=== PATIENT | male | born 1945 | race Caucasian/White ===

== ENCOUNTER 2021-12-07 09:42 | Outpatient (CLI) | payer MEDICARE, OTHER, SELFPAY ==
--- NOTE | ~2021-12-07 | US_ITS ---
EXAMINATION: US aorta [facility] DATE: 12/07/2021 10:39 CDT INDICATION: Encounter for screening for aneurysm. High cholesterol. Hypertension. TECHNIQUE: Grayscale, color Doppler, and pulsed Doppler images of the aorta and common iliac arteries were obtained. COMPARISON: None. FINDINGS: The proximal aorta measures 2 cm greatest sagittal dimension. The mid aorta measures 1.9 cm greatest sagittal dimension. The distal aorta measures 1.5 cm greatest sagittal dimension. The right common in ternal iliac artery measures 0.9 cm. The left common iliac artery measures 0.9 cm. IMPRESSION: 1. Normal caliber aorta without aneurysm. Reviewed, dictated and finalized at location A.
== END 2021-12-07 09:43 | disposition home or self-care (01) ==
PROVIDERS: PCP Family Medicine; Visit Provider Family Medicine
DX: Z13.6 Encounter for screening for cardiovascular disorders (principal)
CPT/HCPCS: 76706

== ENCOUNTER 2022-01-16 00:41 | Day surgery (SDC) | payer MEDICARE, OTHER, SELFPAY ==
[2021-12-25 14:40] VITALS: BMI 25.9
--- NOTE | 2022-01-15 11:15 | PM.HPGS ---
History of Present Illness History of Present Illness Consent: Risks, benefits, and alternatives have been discussed and questions answered. Patient agrees to proceed with procedure. Chief complaint: cancer Narrative: Alonzo Moreno is a 76 year old male referred for colon cancer screening. His mother had colon cancer. Review of Systems Review of Systems: All systems reviewed & are unremarkable except as noted in HPI and below PMFSH Past Medical History Medical History Arthritis Essential (primary) hypertension HLD (hyperlipidemia) Surgical History Surgical History History of cataract History of knee replacement procedure of left knee Status post left hip replacement Status post lumbar spinal fusion Social History Social History Smoking packs per day: 2 Smoking cigarettes per day: 40.0 Years smoked: 10 Smoking pack-years: 20.00 Smoking status: Former smoker Tobacco type: cigarettes and cigars Second hand tobacco smoke exposure: No Smoking end date: 07/07/16 Alcohol intake: never Substance use: never Substance use type: does not use Living arrangements: with family Gender identity (if verbalized by the patient): Male Spiritual care concerns: No Meds Home Medications and Allergies Home Medications Medication Instructions Recorded Confirmed Type diclofenac sodium 1 % topical gel 2 gm topical QID #100 grams 04/03/20 12/25/21 Rx cholecalciferol (vitamin D3) 25 25 mcg PO DAILY 11/15/20 12/25/21 History mcg (1,000 unit) capsule finasteride 5 mg tablet 5 mg PO DAILY #90 tabs 07/16/21 12/25/21 Rx olmesartan 40 See Rx Instructions .Route 08/03/21 12/25/21 Rx mg-hydrochlorothiazide 12.5 mg .COMPLEX #90 tabs tablet metaxalone 800 mg tablet 800 mg PO HS 11/13/21 12/25/21 History sodium sul 1.479 gram-potas ch See Rx Instructions PO PER PKG DIR 11/20/21 12/25/21 Rx 0.188 gram-magnes sul 0.225 gram #24 tabs tablet (Sutab) celecoxib 200 mg capsule (Celebrex) 200 mg PO BID #180 caps 11/21/21 12/25/21 Rx rosuvastatin 5 mg tablet 5 mg PO DAILY #90 tabs 11/22/21 12/25/21 Rx amlodipine 5 mg tablet 5 mg PO DAILY #90 tabs 12/11/21 12/25/21 Rx Allergies Allergy/AdvReac Type Severity Reaction Status Date / Time ALLISON Inhibitors Allergy Unknown Unknown Verified 01/16/22 06:43 Exam Resp: Auscultation: clear to auscultation bilaterally Cardio: Rate: regular rate Rhythm: regular rhythm GI: GI Palp: Yes Soft to palpation and No Tenderness to palpation present (GI) Assessment and Plan Assessment and plan (1) Colon cancer screening: Code(s): Z12.11 - Encounter for screening for malignant neoplasm of colon Status: Acute Assessment and Plan: Colonoscopy with possible biopsy or polypectomy or cautery or injection of substances.
--- NOTE | 2022-01-15 12:32 | P.PNAN_ITS ---
Anes - Initial Pre Proc Eval Procedure: Operation Date: 01/16/22 08:00 Proposed Procedures p Screening Colonoscopy - Pierce Alaniz MD Date/Time: 01/15/22 12:32 Surgeon: Pierce Alaniz MD Pre Op Diagnosis: cancer Patient Data Age: 76 Gender: M Height: 1.78 m Weight: 82 kg Allergies Allergy/AdvReac Type Severity Reaction Status Date / Time ALLISON Inhibitors Allergy Unknown Unknown Verified 01/16/22 06:43 Home Medications Medication Instructions Recorded Confirmed Type diclofenac sodium 1 % topical gel 2 gm topical QID #100 grams 04/03/20 12/25/21 Rx cholecalciferol (vitamin D3) 25 25 mcg PO DAILY 11/15/20 12/25/21 History mcg (1,000 unit) capsule finasteride 5 mg tablet 5 mg PO DAILY #90 tabs 07/16/21 12/25/21 Rx olmesartan 40 See Rx Instructions .Route 08/03/21 12/25/21 Rx mg-hydrochlorothiazide 12.5 mg .COMPLEX #90 tabs tablet metaxalone 800 mg tablet 800 mg PO HS 11/13/21 12/25/21 History sodium sul 1.479 gram-potas ch See Rx Instructions PO PER PKG DIR 11/20/21 12/25/21 Rx 0.188 gram-magnes sul 0.225 gram #24 tabs tablet (Sutab) celecoxib 200 mg capsule (Celebrex) 200 mg PO BID #180 caps 11/21/21 12/25/21 Rx rosuvastatin 5 mg tablet 5 mg PO DAILY #90 tabs 11/22/21 12/25/21 Rx amlodipine 5 mg tablet 5 mg PO DAILY #90 tabs 12/11/21 12/25/21 Rx Patient hx anesthesia problems: none Family hx anesthesia problems: none Results Review: All pre-operative results and documents have been reviewed as part of the pre- operative evaluation. [facility]LY [facility] Past Medical History Medical History Arthritis Essential (primary) hypertension HLD (hyperlipidemia) Surgical History Surgical History History of cataract History of knee replacement procedure of left knee Status post left hip replacement Status post lumbar spinal fusion Social History Social History Smoking packs per day: 2 Smoking cigarettes per day: 40.0 Years smoked: 10 Smoking pack-years: 20.00 Smoking status: Former smoker Tobacco type: cigarettes and cigars Second hand tobacco smoke exposure: No Smoking end date: 07/07/16 Alcohol intake: never Substance use: never Substance use type: does not use Living arrangements: with family Gender identity (if verbalized by the patient): Male Spiritual care concerns: No Anes - Eval Final PreProcedure Day of Procedure 01/15/22 12:32 Patient weight: normal Heart: regular rate and rhythm Lungs: clear to auscultation and normal air movement Airway: Mallampati scale class II Neurological: alert and oriented Last oral intake: >/= 8 hours ASA classification: II Emergent: no Anesthetic plan: proceed Anesthesia type and monitoring: general GIVS Results Review: All pre-operative results and documents have been reviewed as part of the pre- operative evaluation. Informed Consent: The patient's anesthetic plan and its attendant risks and benefits were discussed with the patient/family/POA. Questions were solicited and answers pro vided to the satisfaction of the patient/family/POA.
[2022-01-16 06:44] VITALS: BP 140/97; PULSE 68; RESP 18; TEMP 36.1; O2SAT 97; BMI 25.2
[2022-01-16] MEDS: LACTATED RINGERS 1,000 ML 150 ML IV CONT (06:51)
[2022-01-16 08:01] VITALS: BP 99/64; PULSE 62; RESP 18; O2SAT 100
[2022-01-16 08:11] VITALS: BP 129/72; PULSE 52; RESP 20; O2SAT 100
[2022-01-16 08:21] VITALS: BP 148/79; PULSE 65; RESP 24; O2SAT 100
== END 2022-01-16 08:32 | disposition home or self-care (01) ==
PROVIDERS: PCP Nurse Practitioner Family; Visit Provider Internal Medicine Gastroenterology
PROC: 0DJD8ZZ Inspection of Lower Intestinal Tract, Via Natural or Artificial Opening Endoscopic (ICD-10-PCS; CPT 45378; principal; 2022-01-16 08:00)
DX: Z12.11 Encounter for screening for malignant neoplasm of colon (principal); K64.8 Other hemorrhoids; Z80.0 Family history of malignant neoplasm of digestive organs; I10 Essential (primary) hypertension; E78.5 Hyperlipidemia, unspecified; M19.90 Unspecified osteoarthritis, unspecified site; Z87.891 Personal history of nicotine dependence
CPT/HCPCS: G0105; J2704; J7120

== ENCOUNTER → 2022-01-17 13:42 | Outpatient (CLI) | payer MEDICARE, OTHER, SELFPAY ==
--- NOTE | ~2022-01-17 | MR_ITS ---
EXAMINATION: MR thoracic spine wo con DATE: 01/17/2022 14:57 INDICATION: Thoracic back pain. TECHNIQUE: Magnetic resonance imaging (MRI) of the thoracic spine was performed without intravenous c ontrast. Sagittal localizer T1-weighted FSE of the cervical spine was obtained. Thoracic spine sequen estefania included sagittal T2-weighted FSE, sagittal T1-weighted FSE, sagittal T2-weighted FS FSE, and axi al T2-weighted FSE. COMPARISON: Lumbar spine MRI 04/08/2019 FINDINGS: There is 5 degrees levocurvature of upper thoracic spine. There are hemangiomas in T5 and T 9 vertebral bodies. Vertebral body heights are normal. There is mildly decreased disc height at T5-T6 . At T5-T6, there is a central extrusion with mild central canal stenosis. There is multilevel mild f acet joint osteoarthritis. On the right, there is mild neural foraminal stenosis at T1-T2. The spinal cord signal intensity is normal. The conus medullaris is at L1. There are old healed right rib fract ures. IMPRESSION: 1. Mild thoracic spondylosis. Reviewed, dictated and finalized at location A.
== END ==
PROVIDERS: PCP Family Medicine; Visit Provider Nurse Practitioner Family
DX: M47.894 Other spondylosis, thoracic region (principal)
CPT/HCPCS: 72146

== ENCOUNTER 2022-03-05 16:25 | Outpatient (CLI) | payer MEDICARE, OTHER, SELFPAY ==
--- NOTE | 2022-03-05 | ECG_ITS ---
Measurements Intervals Weldon Rate: 62 P: 58 RI: 164 QRS: 14 QRSD: 104 T: 29 QT: 406 QTc: 413 Interpretive Statements SINUS RHYTHM WITH SINUS ARRHYTHMIA AND OCCASIONAL VENTRICULAR PREMATURE COMPLEXES POSSIBLE LEFT ATRIAL ENLARGEMENT [-0.1mV P WAVE IN V1/V2] NO PREVIOUS ECG AVAILABLE FOR COMPARISON Electronically Signed On 03-05-2022 20:32:44 CDT by Brandi Rider M.D.
[2022-03-05 17:19] LABS: Basophils Absolute Auto 0.1 K/mm3 (0.0-0.1); Basophils Percent Auto 0.9 % (0.2-1.2); Eosinophils Absolute Auto 0.2 K/mm3 (0-0.3); Eosinophils Percent Auto 2.5 % (0-4.4); Hematocrit 40.8 % (42.0-52.0); Hemoglobin 13.1 g/dL (14.0-18.0); Immature Granulocyte Absolute 0.04 K/mm3 (0.00-0.031); Immature Granulocyte Percent A 0.6 % (0-0.5); Lymphocytes Absolute Auto 1.54 K/mm3 (0.9-3.2); Lymphocytes Percent Auto 23.6 % (18.3-44.2); Mean Corpuscular HGB Conc 32.1 g/dl (32-36); Mean Corpuscular Hemoglobin 28.9 pg (26-34); Mean Corpuscular Volume 89.9 fl (80-100); Mean Platelet Volume 10.6 fl (7.4-10.4); Monocytes Absolute Auto 0.6 K/mm3 (0.1-0.6); Monocytes Percent Auto 9.5 % (2.6-8.5); Neutrophils Absolute Auto 4.1 K/mm3 (1.3-6.7); Neutrophils Percent Auto 62.9 % (45.5-73.1); Platelet Count Result 207 k/mm3 (150-375); Red Blood Count 4.54 M/mm3 (4.6-6.20); Red Cell Distribution Width 13.8 % (11.5-14.5); White Blood Count 6.5 K/mm3 (4.5-10.0)
[2022-03-05 17:34] LABS: Add Urine Microscopic? NO; Appearance Urine Clear (Clear); Bilirubin Urine Negative (Negative); Blood Urine Negative (Negative); Color Urine Yellow (Yellow); Glucose Urine UA Negative (Negative); Ketones Urine Negative (Negative); Leukocyte Esterase Ur Negative LEU/UL (Negative); Nitrate Urine Negative (Negative); Protein Urine Negative (Negative); Specific Grav Ur >= 1.030 (1.001-1.035); Urobilinogen Urine 0.2 mg/dL (<2.0); pH Urine 5.5 (5.0-9.0)
[2022-03-05 17:34] LABS: Anion Gap 10 mmol/L (8-16); Blood Urea Nitrogen 32 mg/dL (9-20); CRP < 0.5 mg/dL (<1.0); Calcium 9.1 mg/dL (8.4-10.2); Carbon Dioxide 25 mmol/L (22-30); Chloride 104 mmol/L (98-107); Estimated Glomerular Filt Rate 59; Glucose 95 mg/dL (65-110); Potassium 3.9 mmol/L (3.4-5.0); Sodium 139 mmol/L (137-145)
[2022-03-05 18:01] LABS: Erythrocyte Sedimentation Rate 12 mm/hr (0-20)
== END 2022-03-05 16:26 | disposition home or self-care (01) ==
LOC: ANHLAB 16:28
PROVIDERS: PCP Family Medicine; Visit Provider Pain Medicine Pain Medicine
DX: Z01.810 Encounter for preprocedural cardiovascular examination (principal)
CPT/HCPCS: 36415; 80048; 81003; 85025; 85652; 86140; 93005

== ENCOUNTER 2022-03-18 16:54 | Emergency (ER) | payer MEDICARE, OTHER, SELFPAY ==
[2022-03-18 17:04] VITALS: BP 124/72; PULSE 72; RESP 18; TEMP 36.4; O2SAT 100
[2022-03-18 17:29] LABS: Basophils Absolute Auto 0.1 K/mm3 (0.0-0.1); Basophils Percent Auto 0.7 % (0.2-1.2); Eosinophils Absolute Auto 0.1 K/mm3 (0-0.3); Eosinophils Percent Auto 1.9 % (0-4.4); Hematocrit 40.5 % (42.0-52.0); Hemoglobin 13.1 g/dL (14.0-18.0); Immature Granulocyte Absolute 0.03 K/mm3 (0.00-0.031); Immature Granulocyte Percent A 0.4 % (0-0.5); Lymphocytes Absolute Auto 1.37 K/mm3 (0.9-3.2); Lymphocytes Percent Auto 19.8 % (18.3-44.2); Mean Corpuscular HGB Conc 32.3 g/dl (32-36); Mean Corpuscular Hemoglobin 28.7 pg (26-34); Mean Corpuscular Volume 88.6 fl (80-100); Mean Platelet Volume 10.9 fl (7.4-10.4); Monocytes Absolute Auto 0.8 K/mm3 (0.1-0.6); Neutrophils Absolute Auto 4.6 K/mm3 (1.3-6.7); Neutrophils Percent Auto 66.2 % (45.5-73.1); Platelet Count Result 217 k/mm3 (150-375); Red Blood Count 4.57 M/mm3 (4.6-6.20); Red Cell Distribution Width 13.6 % (11.5-14.5); White Blood Count 6.9 K/mm3 (4.5-10.0)
[2022-03-18 17:36] LABS: Alanine Aminotransferase 17 U/L (6-50); Albumin Level 4.2 g/dL (3.5-5.1); Alkaline Phosphatase 56 U/L (38-126); Anion Gap 9 mmol/L (8-16); Aspartate Amino Transferase 17 U/L (17-59); Bilirubin,Total 0.4 mg/dL (0.2-1.3); Blood Urea Nitrogen 36 mg/dL (9-20); Calcium 9.1 mg/dL (8.4-10.2); Carbon Dioxide 25 mmol/L (22-30); Chloride 104 mmol/L (98-107); Estimated CRCL calculation 45 ml/min; Estimated Glomerular Filt Rate 54; Glucose 109 mg/dL (65-110); Potassium 4.2 mmol/L (3.4-5.0); Sodium 138 mmol/L (137-145)
--- NOTE | 2022-03-18 21:00 | PC.NURSE ---
called in triage with no answer@[id number]
--- NOTE | 2022-03-18 21:01 | PC.NURSE ---
Called in rubi to go back to room @ [phone] with no answer
== END 2022-03-18 20:57 | disposition left against medical advice (07) ==
PROVIDERS: Emergency Medicine; PCP Family Medicine
DX: M54.50 Low back pain, unspecified (principal)
CPT/HCPCS: 36415; 80053; 85025; 99199

== ENCOUNTER → 2022-04-22 15:53 | Outpatient (CLI) | payer MEDICARE, OTHER, SELFPAY ==
--- NOTE | ~2022-04-22 | XR_ITS ---
EXAMINATION: XR thoracic spine 2V DATE: 04/22/2022 16:22 INDICATION: Back pain. TECHNIQUE: 3 views of thoracic spine standing were obtained. COMPARISON: Thoracic spine MRI 01/17/2022 FINDINGS: There is 8 degrees levocurvature of upper thoracic spine. Vertebral body heights are normal . There are endplate osteophytes at most levels. Intervertebral disc heights are normal. There are 2 electrodes overlying the spine with tips at T4 and T7, respectively. IMPRESSION: 1. Mild thoracic spondylosis. Reviewed, dictated and finalized at location B.
--- NOTE | ~2022-04-22 | XR_ITS ---
EXAMINATION: XR lumbar spine 2-3V DATE: 04/22/2022 16:22 INDICATION: Back pain. TECHNIQUE: 3 views of lumbar spine were obtained. COMPARISON: Lumbar spine radiographs 05/09/2015, lumbar spine MRI 05/09/2019 FINDINGS: There is 5 mm anterolisthesis of L5 on S1. Vertebral body heights are normal. There is mild ly decreased disc height at L1-L2. There is mildly decreased disc height at L4-L5 and moderately decr eased disc height at L5-S1 with interbody fusion. There is a laminectomy at L5. There is hypertrophy of the facet joints in lower lumbar spine. An electronic device overlies the left posterior pelvis wi th 2 electrodes in thoracic spine. IMPRESSION: 1. Mild lumbar spondylosis. 2. Interbody fusion at L4-L5 and L5-S1. Reviewed, dictated and finalized at location B.
== END ==
PROVIDERS: PCP Family Medicine; Visit Provider Nurse Practitioner Family
DX: M47.896 Other spondylosis, lumbar region (principal); M47.894 Other spondylosis, thoracic region; Z98.1 Arthrodesis status
CPT/HCPCS: 72070; 72100

== ENCOUNTER 2023-10-15 13:35 | Outpatient (CLI) | payer MEDICARE, OTHER, SELFPAY ==
--- NOTE | 2023-10-15 14:30 | NEURO_ITS ---
Impression: # Complains of nocturnal paresthesia of hands. Non-diabetic. # Bilateral Carpal Tunnel Syndrome, right more than left. # No ulnar neuropathy. # Needle/EMG exam mildly abnormal in right APB. Nerve Conduction Studies Anti Sensory Summary Table Stim Site NR Peak (ms) P-T Amp (?V) Site1 Site2 Delta-P (ms) Dist (cm) Lyndon (m/s) Left Median Anti Sensory (2-3nd Digit) Wrist 3.4 25.7 Wrist 2-3nd Digit 3.4 14.0 41 Wrist 3.5 9.6 Wrist 2-3nd Digit 3.4 14.0 41 Right Median Anti Sensory (2-3nd Digit) Wrist 4.8 26.8 Wrist 2-3nd Digit 4.8 14.0 29 Wrist 4.5 6.3 Wrist 2-3nd Digit 4.8 14.0 29 Left Radial Anti Sensory (Base 1st Digit) Wrist 2.3 32.9 Wrist Base 1st Digit 2.3 0.0 Right Radial Anti Sensory (Base 1st Digit) Wrist 2.7 13.6 Wrist Base 1st Digit 2.7 0.0 Left Ulnar Anti Sensory (5th Digit) Wrist 2.8 18.1 Wrist 5th Digit 2.8 14.0 50 Right Ulnar Anti Sensory (5th Digit) Wrist 2.5 26.4 Wrist 5th Digit 2.5 14.0 56 Motor Summary Table Stim Site NR Onset (ms) O-P Amp (mV) Site1 Site2 Delta-0 (ms) Dist (cm) Lyndon (m/s) Left Median Motor (Abd Poll Brev) Wrist 3.9 1.8 Elbow Wrist 5.2 30.0 58 Elbow 9.1 1.3 Right Median Motor (Abd Poll Brev) Wrist 4.5 3.0 Elbow Wrist 5.3 32.0 60 Elbow 9.8 5.8 Left Ulnar Motor (Abd Dig Minimi) Wrist 2.6 6.3 A Elbow Wrist 5.4 32.0 59 A Elbow 8.0 5.0 Right Ulnar Motor (Abd Dig Minimi) Wrist 2.5 6.1 A Elbow Wrist 5.2 33.0 63 A Elbow 7.7 5.1 F Wave Studies NR F-Lat (ms) L-R F-Lat (ms) Left Median (Mrkrs) (Abd Poll Brev) 31.33 0.27 Right Median (Mrkrs) (Abd Poll Brev) 31.06 0.27 Left Ulnar (Mrkrs) (Abd Dig Min) 30.78 1.46 Right Ulnar (Mrkrs) (Abd Dig Min) 29.32 1.46 EMG Side Muscle Nerve Root Ins Act Fibs Amp Dur Recrt Comment Right 1stDorInt Ulnar C8-T1 Nml Nml Nml Nml Nml Right Ext Indicis Radial (Post Int) C7-8 Nml Nml Nml Nml Nml Right Ext Digitorum Radial (Post Int) C7-8 Nml Nml Nml Nml Nml Right BrachioRad Radial C5-6 Nml Nml Nml Nml Nml Right PronatorTeres Median C6-7 Nml Nml Nml Nml Nml Right Abd Poll Brev Median C8-T1 Nml Nml Nml >12ms ++ Right ABD Dig Min Ulnar C8-T1 Nml Nml Nml Nml Nml Left 1stDorInt Ulnar C8-T1 Nml Nml Nml Nml Nml Left Ext Indicis Radial (Post Int) C7-8 Nml Nml Nml Nml Nml Left Ext Digitorum Radial (Post Int) C7-8 Nml Nml Nml Nml Nml Left BrachioRad Radial C5-6 Nml Nml Nml Nml Nml Left PronatorTeres Median C6-7 Nml Nml Nml Nml Nml Left Abd Poll Brev Median C8-T1 Nml Nml Nml Nml Nml Left ABD Dig Min Ulnar C8-T1 Nml Nml Nml Nml Nml MTDD
== END 2023-10-15 13:36 | disposition home or self-care (01) ==
LOC: ANHNEURO 13:36
PROVIDERS: PCP Family Medicine; Visit Provider Physician Assistant
DX: G56.03 Carpal tunnel syndrome, bilateral upper limbs (principal)
CPT/HCPCS: 95886; 95911

== ENCOUNTER 2024-01-21 02:05 | Day surgery (SDC) | payer MEDICARE, OTHER, SELFPAY ==
[2024-01-16 14:57] VITALS: BMI 27.0
--- NOTE | 2024-01-16 14:59 | PC.NURSE ---
Report to the Outpatient Waiting Room, entrance under the green pavilion located off [facility], at time _0730_ on date _[id number]_. Planned Procedure Time: _0930_. Time changes happen often and if your time is changed the preop area will call you the afternoon before. - You and your visitor will be asked to self-screen and do not enter if you have any COVID symptoms. - A mask is optional within the hospital at this time. Patients may have clear liquids (water, carbonated beverages, clear teas, apple juice) until 3 hours prior to surgery with a maximum of 20 ounces. - No food from midnight until time of surgery Take the following medications with a SIP of water the morning of surgery: ____Amlodipine and Celebrex DO NOT STOP ANY OF YOUR OTHER PRESCRIPTION MEDICATIONS PRIOR TO SURGERY ?EXCEPT THE FOLLOWING Medications to discontinue per physician ___None Date to take last dose Please no make-up, nail cameroonian, hairspray, perfume, deodorant, or body powder the day of surgery. No jewelry (including any body piercings) or valuables the day of surgery, leave them at home. Please take a shower or bath the night before, or the morning of, surgery with an antibacterial soap. Wear comfortable, loose fitting clothing. - Jewelry must be removed prior to entering the operating room. Rings and piercings that are not removed may be cut off. - The hospital will not accept responsibility for valuables. - Please leave all valuables, including medications, at home the day of surgery. If you are going home after surgery, a licensed residential driver must drive you home. - NO public transportation without another adult if you receive anesthesia. - We recommend that an adult stay with you for 24 hours following discharge. - We also recommend that you do not drive, make important decision, drink alcoholic beverages, or take any drugs that were not prescribed by your health care provider for at least 24 hours after your discharge time. Follow any additional instructions given to you from your surgeon. If you or anyone in your household have experienced Covid symptoms in the past week, please notify your surgeon or the nurse liaison at the phone number below for possible testing. Telephone instructions given to __Bill___and asked if any additional questions and then verbalized understanding. Patient advised to call surgeon office or pre surgery nurse liaison [phone] if any additional questions.
--- NOTE | 2024-01-16 15:11 | PC.NURSE ---
Report to the Outpatient Waiting Room, entrance under the green pavilion located off [facility], at time _0730_ on date _[phone]_. Planned Procedure Time: _0930_. Time changes happen often and if your time is changed the preop area will call you the afternoon before. - You and your visitor will be asked to self-screen and do not enter if you have any COVID symptoms. - A mask is optional within the hospital at this time. - No food or drink from midnight until time of surgery Take the following medications with a SIP of water the morning of surgery: __Amlodipine and Celebrex DO NOT STOP ANY OF YOUR OTHER PRESCRIPTION MEDICATIONS PRIOR TO SURGERY ?EXCEPT THE FOLLOWING Medications to discontinue per physician None. Patient says rarely uses diclofenac and will just not use it till after surgery. Date to take last dose Please no make-up, nail nigerian, hairspray, perfume, deodorant, or body powder the day of surgery. No jewelry (including any body piercings) or valuables the day of surgery, leave them at home. Please take a shower or bath the night before, or the morning of, surgery with an antibacterial soap. Wear comfortable, loose fitting clothing. - Jewelry must be removed prior to entering the operating room. Rings and piercings that are not removed may be cut off. - The hospital will not accept responsibility for valuables. - Please leave all valuables, including medications, at home the day of surgery. If you are going home after surgery, a licensed cement mixer driver must drive you home. - NO public transportation without another adult if you receive anesthesia. - We recommend that an adult stay with you for 24 hours following discharge. - We also recommend that you do not drive, make important decision, drink alcoholic beverages, or take any drugs that were not prescribed by your health care provider for at least 24 hours after your discharge time. Follow any additional instructions given to you from your surgeon. If you or anyone in your household have experienced Covid symptoms in the past week, please notify your surgeon or the nurse liaison at the phone number below for possible testing. Telephone instructions given to __Bill__and asked if any additional questions and then verbalized understanding. Patient advised to call surgeon office or pre surgery nurse liaison [phone] if any additional questions.
--- NOTE | 2024-01-21 06:40 | PM.HPGS ---
History of Present Illness History of Present Illness Chief complaint: lesion right ulnar nerve, rt carpal tunnel synd Narrative: Patient seen and examined in pre-operative holding area. No interval change in medical history or symptoms. Patient recalls previous discussion of benefits and alternatives to procedure. Continues to desire to proceed with right endoscopic possible open carpal tunnel release and right cubital tunnel release. Reviewed procedure, post-op expectations and risks including but not limited to bleeding, infection, injury to tendon/nerve/vessel, decreased hand function, stiffness, RSD, no change or worsening of symptoms. I discussed the possible use of assistants and their participation in the case. Patient stated understanding and signed the consent form wishing to proceed. Review of Systems Review of Systems: All systems reviewed & are unremarkable except as noted in HPI and below PMFSH Past Medical History Medical History Arthritis CKD (chronic kidney disease), stage III Essential (primary) hypertension HLD (hyperlipidemia) Hy kid NOS w cr kid I-IV Surgical History Surgical History History of cataract History of knee replacement procedure of left knee Status post left hip replacement Status post lumbar spinal fusion Social History Social History Smoking packs per day: 2 Smoking cigarettes per day: 40.0 Years smoked: 40 Smoking pack-years: 80.00 Smoking status: Former smoker Tobacco type: cigarettes and cigars Second hand tobacco smoke exposure: No Smoking end date: 01/16/04 Alcohol intake: never Substance use: never Substance use type: does not use Living arrangements: with family Occupation/Education: retired Gender identity (if verbalized by the patient): Male Spiritual care concerns: No Meds Home Medications and Allergies Home Medications Medication Instructions Recorded Confirmed Type diclofenac sodium 1 % topical gel 2 gm topical QID #100 grams 04/03/20 01/16/24 Rx hydrocodone 5 mg-acetaminophen 325 1 tablet PO Q8H PRN Pain 11/18/22 01/16/24 History mg tablet olmesartan 40 See Rx Instructions .Route 04/25/23 01/16/24 Rx mg-hydrochlorothiazide 12.5 mg .COMPLEX #90 tabs tablet amlodipine 5 mg tablet 5 mg PO DAILY #90 tabs 06/25/23 01/16/24 Rx celecoxib 200 mg capsule See Rx Instructions .Route 07/28/23 01/16/24 Rx .COMPLEX #180 caps rosuvastatin 5 mg tablet See Rx Instructions .Route 07/28/23 01/16/24 Rx .COMPLEX #90 tabs finasteride 5 mg tablet 5 mg PO DAILY #90 tabs 01/13/24 01/16/24 Rx Allergies Allergy/AdvReac Type Severity Reaction Status Date / Time ALLISON Inhibitors Allergy Mild Cough Verified 01/21/24 08:07 Exam Narrative: unchnaged Assessment and Plan Assessment and plan (1) Bilateral carpal tunnel syndrome: Code(s): G56.03 - Carpal tunnel syndrome, bilateral upper limbs Status: Acute Assessment and Plan: cont as above
--- NOTE | 2024-01-21 06:41 | W.PM.PROC2 ---
Procedure Note - Detailed Date of Procedure 01/21/24 Pre-op Diagnosis right carpal and cubital tunnel syndrome Post-op Diagnosis Same Procedure Performed right ectr and CuTR Surgeon Matias Delgado MD Composition Worker hector gaitan pa-c Anesthesia MAC Description of Procedure INFORMED CONSENT: The patient was seen and examined and marked in the pre-op area.? The patient signed the consent form. PROCEDURE IN DETAIL:The patient taken back to OR on the stretcher in supine position. Time out performed with anesthesia, surgeon and staff agreeing on patient's name site and surgery to be performed SCDs were placed on the lower extremities and inflated. A tourniquet was placed on {right} upper extremity and antibiotics given IV After anesthesia administered sedation I injected {10}cc 1%lido with epi and 0.5% marcaine plain at the operative sites The?{right upper extremity}?was prepped and draped in sterile fashion the??{right upper extremity} was? exsanguinated with Esmarch bandage and tourniquet inflated to 250mmHg I made a transverse incision in the {right} volar distal wrist crease through skin and dermis with 15 blade scalpel.? Littler scissors spread down to antebrachial fascia. A small incision was made in antebrachial fascia allowing access to Carpal tunnel. I proceeded with sequential dilation staying in line with the ring finger and hugging the hook of the hamate.? I then used the synovial elevator to free any adhesions from the underside of the transverse carpal ligament. Next I was able to insert the Microaire endoscopic carpal tunnel device with direct visualization of the transverse fibers on the monitor and proceeded with complete segmental retrograde release of the ligament in its entirety.? I irrigated with normal saline and closed with 4-0 monocryl for dermis and subcuticular closure. Next, I next proceeded with making a longitudinal incision between two heads for flexor carpi ulnaris at end of {right} cubital tunnel with 15 blade scalpel.? Littler scissors were used to spread down to FCU fascia.? An incision was made in FCU fascia and ulnar nerve identified exiting cubital tunnel.? I proceeded with complete retrograde release of the cubital tunnel including 7cm proximal for the intermuscular septum.? The nerve appeared healthy with visible vaso nervorum.? There was no subluxation on full elbow range of motion. ? I irrigated with normal saline and closure with 4-0 monocryl for dermis and subcuticular. The incisions were covered with Dermabond then 4x4s, anthony, and a posterior elbow and volar wrist splint for patient safety, security and comfort and secured with ezra bandages after the tourniquet was let down noting the hand was warm and well perfused.? Patient awaken from anesthesia and transferred to recovery in stable condition Complications - none EBL- 1cc Disposition - home in stable conditions hector gaitan pa-c was essential for positioning, retraction, closure and dressing placement [facility] Billing Surgery - Charge Forward: Surgery Billing ([id number] for hector)
[2024-01-21 08:09] VITALS: BP 153/85; PULSE 64; RESP 14; TEMP 36.6; O2SAT 99
[2024-01-21 08:13] VITALS: BMI 27.5
[2024-01-21] MEDS: LACTATED RINGERS 1,000 ML 30 ML IV CONT (08:13)
--- NOTE | 2024-01-21 08:22 | WPDANESEPPF ---
Anes - Initial Pre Proc Eval Procedure: Operation Date: 01/21/24 09:30 Proposed Procedures p Right Endoscopic Carpal Tunnel Release, Possible Open, Right Cubital Tunnel Release - Matias Delgado MD Date/Time: 01/21/24 08:22 Surgeon: Matias Delgado MD Pre Op Diagnosis: lesion right ulnar nerve, rt carpal tunnel synd Patient Data Age: 78 Gender: M Height: 1.78 m Weight: 87.1 kg Last Vital Signs Temp 97.9 F 01/21/24 08:09 Pulse 64 01/21/24 08:09 Resp 14 01/21/24 08:09 BP 153/85 H 01/21/24 08:09 Pulse Ox 99 01/21/24 08:09 Allergies Allergy/AdvReac Type Severity Reaction Status Date / Time ALLISON Inhibitors Allergy Mild Cough Verified 01/21/24 08:07 Home Medications Medication Instructions Recorded Confirmed Type diclofenac sodium 1 % topical gel 2 gm topical QID #100 grams 04/03/20 01/16/24 Rx hydrocodone 5 mg-acetaminophen 325 1 tablet PO Q8H PRN Pain 11/18/22 01/16/24 History mg tablet olmesartan 40 See Rx Instructions .Route 04/25/23 01/16/24 Rx mg-hydrochlorothiazide 12.5 mg .COMPLEX #90 tabs tablet amlodipine 5 mg tablet 5 mg PO DAILY #90 tabs 06/25/23 01/16/24 Rx celecoxib 200 mg capsule See Rx Instructions .Route 07/28/23 01/16/24 Rx .COMPLEX #180 caps rosuvastatin 5 mg tablet See Rx Instructions .Route 07/28/23 01/16/24 Rx .COMPLEX #90 tabs finasteride 5 mg tablet 5 mg PO DAILY #90 tabs 01/13/24 01/16/24 Rx Patient hx anesthesia problems: none Family hx anesthesia problems: none Results Review: All pre-operative results and documents have been reviewed as part of the pre-operative evaluation. [facility] Past Medical History Medical History Arthritis CKD (chronic kidney disease), stage III Essential (primary) hypertension HLD (hyperlipidemia) Hy kid NOS w cr kid I-IV Surgical History Surgical History History of cataract History of knee replacement procedure of left knee Status post left hip replacement Status post lumbar spinal fusion Social History Social History Smoking packs per day: 2 Smoking cigarettes per day: 40.0 Years smoked: 40 Smoking pack-years: 80.00 Smoking status: Former smoker Tobacco type: cigarettes and cigars Second hand tobacco smoke exposure: No Smoking end date: 01/16/04 Alcohol intake: never Substance use: never Substance use type: does not use Living arrangements: with family Occupation/Education: retired Gender identity (if verbalized by the patient): Male Spiritual care concerns: No Anes - Eval Final PreProcedure Day of Procedure 01/21/24 08:22 Patient weight: normal Heart: regular rate and rhythm Lungs: clear to auscultation Airway: Mallampati scale Neurological: alert and oriented Last oral intake: >/= 8 hours ASA classification: II Emergent: no Anesthetic plan: proceed Anesthesia type and monitoring: general GIVS and standard monitoring Results Review: All pre-operative results and documents have been reviewed as part of the pre-operative evaluation. HTN, hyperlipidemia, ex smoker. Very active working on his cars, [place], no cp or sob. Informed Consent: The patient's anesthetic plan and its attendant risks and benefits were discussed with the patient/family/POA. Questions were solicited and answers provided to the satisfaction of the patient/family/POA.
[2024-01-21] MEDS: ceFAZolin 2 GM/D5W 50 ML 2 GM/50 ML BAG IVPB (09:10)
[2024-01-21] MEDS: LIDO 1%/EPINEPHRINE 1:100,000 50 ML VIAL INFILTRATE (09:39)
[2024-01-21] MEDS: BUPivacaine HCL 0.5% 10 ML AMP 5 ML INFILTRATE (09:40)
[2024-01-21 09:48] VITALS: BP 111/64; PULSE 62; RESP 14; O2SAT 95
[2024-01-21 10:15] VITALS: BP 139/66; PULSE 50; RESP 16; O2SAT 96
[2024-01-21 10:42] VITALS: BP 142/75; PULSE 51; RESP 16; O2SAT 97
== END 2024-01-21 10:49 | disposition home or self-care (01) ==
PROVIDERS: PCP Family Medicine; Visit Provider Plastic Surgery
PROC: 01N54ZZ Release Median Nerve, Percutaneous Endoscopic Approach (ICD-10-PCS; CPT 29848; principal; 2024-01-21 09:30)
DX: G56.01 Carpal tunnel syndrome, right upper limb (principal); G56.21 Lesion of ulnar nerve, right upper limb; I12.9 Hypertensive chronic kidney disease with stage 1 through stage 4 chronic kidney disease, or unspecified chronic kidney disease; N18.30 Chronic kidney disease, stage 3 unspecified; E78.5 Hyperlipidemia, unspecified; Z79.891 Long term (current) use of opiate analgesic; Z98.890 Other specified postprocedural states; Z98.1 Arthrodesis status; Z87.891 Personal history of nicotine dependence
CPT/HCPCS: 64718; 29848; J0690; J2405; J2704; J3010; J7120

== ENCOUNTER 2024-03-01 10:15 | Outpatient (CLI) | payer MEDICARE, OTHER, SELFPAY ==
[2024-03-01 12:18] LABS: Prothrombin Time 13.4 Seconds (11.1-14.7)
[2024-03-01 12:20] LABS: Anion Gap 8 mmol/L (4-12); Blood Urea Nitrogen 33 mg/dL (9-20); Carbon Dioxide 28 mmol/L (22-30); Chloride 103 mmol/L (98-107); Estimated Glomerular Filt Rate 49; Glucose 78 mg/dL (65-110); Potassium 4.3 mmol/L (3.4-5.0); Sodium 139 mmol/L (137-145)
== END 2024-03-01 10:16 | disposition home or self-care (01) ==
PROVIDERS: Anesthesiology; PCP Family Medicine; Visit Provider Plastic Surgery
DX: Z01.818 Encounter for other preprocedural examination (principal); N18.30 Chronic kidney disease, stage 3 unspecified
CPT/HCPCS: 36415; 80048; 85610; 85730

== ENCOUNTER 2024-03-03 01:58 | Day surgery (SDC) | payer MEDICARE, OTHER, SELFPAY ==
[2024-02-26 13:09] VITALS: BMI 26.9
--- NOTE | 2024-02-26 13:35 | PC.NURSE ---
Report to the Outpatient Waiting Room, entrance under the green pavilion located off [facility], at time _12:45PM_ on date _03/03/24___. Planned Procedure Time: __2:45PM .? Time changes happen often and if your time is changed the preop area will call you the afternoon before. - You and your visitor will be asked to self-screen and do not enter if you have any COVID symptoms. Please call surgeon if you need to reschedule. - A mask is optional within the hospital at this time. Patients may have clear liquids (water, carbonated beverages, clear teas, apple juice) until 8 hours prior to surgery with a maximum of 20 ounces. - No food from midnight until time of surgery and no smoking. Take only the following medications with a SIP of water on the morning of surgery: AMLODIPINE. ALSO MAY HAVE HYDROCODONE NEEDED FOR PAIN DO NOT STOP ANY OF YOUR OTHER PRESCRIPTION MEDICATIONS PRIOR TO SURGERY EXCEPT THE FOLLOWING Medications to discontinue per physician NONE Date to take last dose Please no make-up, nail luxembourgish, hairspray, perfume, deodorant, or body powder the day of surgery.? No jewelry (including any body piercings) or valuables the day of surgery, leave them at home.? Please take a shower or bath the night before, or the morning of, surgery with an antibacterial soap.? Wear comfortable, loose fitting clothing.? - Jewelry must be removed prior to entering the operating room.? Rings and piercings that are not removed may be cut off. - The hospital will not accept responsibility for valuables.? - Please leave all valuables, including medications, at home the day of surgery. If you are going home after surgery, a licensed regional otr company driver must drive you home.? - NO public transportation without another adult if you receive anesthesia. - We recommend that an adult stay with you for 24 hours following discharge. - We also recommend that you do not drive, make important decision, drink alcoholic beverages, or take any drugs that were not prescribed by your health care provider for at least 24 hours after your discharge time. Follow any additional instructions given to you from your surgeon. Telephone instructions given to ____PATIENT and asked if any additional questions and then verbalized understanding. Patient advised to call surgeon office or pre surgery nurse liaison [phone] if any additional questions.
--- NOTE | 2024-03-03 07:02 | WPDHPUPDATE1 ---
History and Physical Update Update Date/Time: 03/03/24 07:02 Patient seen and examined in pre-operative holding area. No interval change in medical history or symptoms. Patient recalls previous discussion of benefits and alternatives to procedure. Continues to desire to proceed with left endoscopic possible open carpal tunnel release, left cubital tunnel release, and left volar wrist ganglion cyst excision. Reviewed procedure, post-op expectations and risks including but not limited to bleeding, infection, injury to tendon/nerve/vessel, decreased hand function, stiffness, RSD, no change or worsening of symptoms. I discussed the possible use of assistants and their participation in the case. Patient stated understanding and signed the consent form wishing to proceed. exam of left volar wrist mass noted stronger radial pulse and difficult to differentiate if mass may be more consistent with ganglion vs arterial aneurysm. discussed option to proceed but if appeared arterial in nature then no further procedure would be performed. Discussed alternative to not attempting ganglion exicsion today and getting ultrasound at later date. patient prefers to proceed with attempted exploration and ganglion excision today noting if no ganglion identified he may still have persistent mass.
--- NOTE | 2024-03-03 07:02 | W.PM.PROC2 ---
Procedure Note - Detailed Date of Procedure 03/03/24 Pre-op Diagnosis left carpal & cubital tunnel syndr, left volar wrist mass Post-op Diagnosis Same Procedure Performed left endo carpal tunnel release, left cubital tunnel release, and left volar wrist mass/cyst excision Surgeon Matias Delgado MD Art Critic hector gaitan pa-c Anesthesia MAC Description of Procedure INFORMED CONSENT: The patient was seen and examined and marked in the pre-op area.? The patient signed the consent form. PROCEDURE IN DETAIL:The patient taken back to OR on the stretcher in supine position. Time out performed with anesthesia, surgeon and staff agreeing on patient's name site and surgery to be performed SCDs were placed on the lower extremities and inflated. A tourniquet was placed on {left} upper extremity and antibiotics given IV After anesthesia administered sedation I injected {10}cc 1%lido with epi and 0.5% marcaine plain at the operative sites The?{left upper extremity}?was prepped and draped in sterile fashion the??{left upper extremity} was? exsanguinated with Esmarch bandage and tourniquet inflated to 250mmHg I made a transverse incision in the {left} volar distal wrist crease through skin and dermis with 15 blade scalpel.? Littler scissors spread down to antebrachial fascia. A small incision was made in antebrachial fascia allowing access to Carpal tunnel. I proceeded with sequential dilation staying in line with the ring finger and hugging the hook of the hamate.? I then used the synovial elevator to free any adhesions from the underside of the transverse carpal ligament. Next I was able to insert the Microaire endoscopic carpal tunnel device with direct visualization of the transverse fibers on the monitor and proceeded with complete segmental retrograde release of the ligament in its entirety.? I irrigated with normal saline and closed with 4-0 monocryl for dermis and subcuticular closure. I next proceeded with making a longitudinal incision between two heads for flexor carpi ulnaris at end of {left} cubital tunnel with 15 blade scalpel.? Littler scissors were used to spread down to FCU fascia.? An incision was made in FCU fascia and ulnar nerve identified exiting cubital tunnel.? I proceeded with complete retrograde release of the cubital tunnel including 7cm proximal for the intermuscular septum.? The nerve appeared healthy with visible vaso nervorum.? There was no subluxation on full elbow range of motion. ? I irrigated with normal saline and closure with 4-0 monocryl for dermis and subcuticular. I next proceeded with making a longitudinal incision over the left volar wrist mass through skin and dermis with 15 blade scalpel. Littler scissors were used to spread down to antebrachial fascia which was incised and the mass/cyst measuring 1.3cm was identified and appeared closely adherent and possibly originating form the radial artery. The tourniquet was let down to better idenitify and protect the radial artery and the mass was dissected off the artery with littler scissors and bipolar cautery. I irrigated with normal saline. The artery was intact and pulsations visible. Skin was closed with 3-0 and 4-0 monocryl for dermis and subcuticular closure respectively. The hand was warm and well perfused The incisions were covered with Dermabond then 4x4s, anthony, and a posterior elbow and volar wrist splint for patient safety, security and comfort and secured with ezra bandages.? Patient awaken from anesthesia and transferred to recovery in stable condition Complications - none EBL- 4cc Disposition - home in stable conditions hector gaitan pa-c was essential for positioning, retraction, closure and dressing placement G Billing Surgery - Charge Forward: Surgery Billing ([id number] same for hector pearson )
[2024-03-03 12:26] VITALS: BP 149/81; PULSE 72; RESP 18; TEMP 36.2; O2SAT 98
--- NOTE | 2024-03-03 12:57 | WPDANESEPPF ---
Anes - Initial Pre Proc Eval Procedure: Operation Date: 03/03/24 14:45 Proposed Procedures p Left Endoscopic Carpal Tunnel Release, Possible Open, Left Cubital Tunnel Release - Matias Delgado MD s Excision Left Wrist Ganglion Cyst - Matias Delgado MD Date/Time: 03/03/24 12:57 Surgeon: Matias Delgado MD Pre Op Diagnosis: left carpal & cubital tunnel syndr, left ganglion Patient Data Age: 78 Gender: M Height: 1.78 m Weight: 86.4 kg Last Vital Signs Temp 97.2 F L 03/03/24 12:26 Pulse 72 03/03/24 12:26 Resp 18 03/03/24 12:26 BP 149/81 H 03/03/24 12:26 Pulse Ox 98 03/03/24 12:26 O2 Del Method Room Air 03/03/24 12:26 Allergies Allergy/AdvReac Type Severity Reaction Status Date / Time ALLISON Inhibitors AdvReac Mild Cough Verified 02/26/24 13:04 Home Medications Medication Instructions Recorded Confirmed Type hydrocodone 5 mg-acetaminophen 325 1 tablet PO Q8H PRN Pain 11/18/22 02/26/24 History mg tablet olmesartan 40 See Rx Instructions .Route 04/25/23 02/26/24 Rx mg-hydrochlorothiazide 12.5 mg .COMPLEX #90 tabs tablet amlodipine 5 mg tablet 5 mg PO DAILY #90 tabs 06/25/23 02/26/24 Rx celecoxib 200 mg capsule See Rx Instructions .Route 07/28/23 02/26/24 Rx .COMPLEX #180 caps rosuvastatin 5 mg tablet See Rx Instructions .Route 07/28/23 02/26/24 Rx .COMPLEX #90 tabs finasteride 5 mg tablet 5 mg PO DAILY #90 tabs 01/13/24 02/26/24 Rx diclofenac sodium 1 % topical gel 2 gm topical QID PRN Pain 02/26/24 02/26/24 History Patient hx anesthesia problems: none Family hx anesthesia problems: none Results Review: All pre-operative results and documents have been reviewed as part of the pre-operative evaluation. [facility] Past Medical History Medical History Arthritis CKD (chronic kidney disease), stage III Essential (primary) hypertension HLD (hyperlipidemia) Hy kid NOS w cr kid I-IV Surgical History Surgical History History of cataract History of knee replacement procedure of left knee Status post left hip replacement Status post lumbar spinal fusion Social History Social History Smoking packs per day: 2 Smoking cigarettes per day: 40.0 Years smoked: 3 Smoking pack-years: 6.00 Smoking status: Former smoker Tobacco type: cigarettes Second hand tobacco smoke exposure: No Smoking end date: 01/05/1968 Additional smoking assessment comments: [id number] Alcohol intake: current Substance use: never Substance use type: does not use Living arrangements: with family Additional living arrangements comments: Occupation/Education: retired Gender identity (if verbalized by the patient): Male Spiritual care concerns: No Anes - Eval Final PreProcedure Day of Procedure 03/03/24 12:57 Patient weight: normal Heart: regular rate and rhythm Lungs: clear to auscultation Airway: Mallampati scale class II Neurological: alert and oriented Last oral intake: >/= 8 hours ASA classification: II Emergent: no Anesthetic plan: proceed Anesthesia type and monitoring: general GIVS and standard monitoring Results Review: All pre-operative results and documents have been reviewed as part of the pre-operative evaluation. HTN, hyperlipidemia, ex smoker, quit [id number]. Active w working outdoors, no cp or sob. Informed Consent: The patient's anesthetic plan and its attendant risks and benefits were discussed with the patient/family/POA. Questions were solicited and answers provided to the satisfaction of the patient/family/POA.
[2024-03-03] MEDS: ceFAZolin 2 GM/D5W 50 ML 2 GM/50 ML BAG IVPB (13:50)
[2024-03-03] MEDS: BUPivacaine HCL 0.5% PF 30 ML VIAL INFILTRATE (14:04)
[2024-03-03] MEDS: LIDO 1%/EPINEPHRINE 1:100,000 20 ML VIAL INFILTRATE (14:05)
[2024-03-03 14:42] VITALS: BP 115/65; PULSE 65; RESP 16; O2SAT 97
[2024-03-03] MEDS: LACTATED RINGERS 1,000 ML 30 ML IV CONT (14:42)
[2024-03-03 15:00] VITALS: BP 122/72; PULSE 55; RESP 16
[2024-03-03 15:30] VITALS: BP 146/72; PULSE 47; RESP 16
[2024-03-03 15:52] VITALS: BP 144/74; PULSE 47; RESP 16
== END 2024-03-03 16:02 | disposition home or self-care (01) ==
PROVIDERS: PCP Family Medicine; Visit Provider Plastic Surgery
PROC: 01N54ZZ Release Median Nerve, Percutaneous Endoscopic Approach (ICD-10-PCS; CPT 29848; principal; 2024-03-03 14:45)
PROC: (CPT 29848; 2024-03-03 14:45)
DX: G56.02 Carpal tunnel syndrome, left upper limb (principal); G56.22 Lesion of ulnar nerve, left upper limb; M67.432 Ganglion, left wrist; I12.9 Hypertensive chronic kidney disease with stage 1 through stage 4 chronic kidney disease, or unspecified chronic kidney disease; N18.30 Chronic kidney disease, stage 3 unspecified; E78.5 Hyperlipidemia, unspecified; Z98.1 Arthrodesis status; Z87.891 Personal history of nicotine dependence
CPT/HCPCS: 29848; 64718; 25111; 88305; A9270; J0690; J2250; J2704; J3010; J7120

== ENCOUNTER 2025-02-28 13:06 | Emergency (ER) | payer MEDICARE, OTHER, SELFPAY ==
--- OUTSIDE RECORDS SUMMARY | 2024-08-06 05:00 | XMS_ITS ---
Author Organization [facility] Physician Luis es Billing Info Address [address] [place] [address] Drbradley davidson [place] [id number] Care Team Providers Care Curator [employer] Name Role Phone RAGHU CRUZ Primary Care Provider KATTY Michael Unavailable ARTHUR MOYER Unavailable [phone] Allergies Allergen (clinical drug ingredient) Drug/Non Drug Allergy documented on EMR Reaction Allergy Type Onset Date Status Inhaler Decongestant Unknown Drug Allergy Active angiotensin-converting enzyme inhibitor (FN) ALLISON Inhibitors Unknown Drug Allergy Acti ve REASON FOR VISIT B/L Hand Pain and weakness, No Injury, Xrays at [facility] 08/05/24, Sx 12/2023 Left Carpal and [place]ital Release in [place] 02/2024 [place]pal [place] Medications Medication SIG (Take, Route, Frequency, Duration) Notes Start Date End Date Status Rosuvastatin Calcium 5 MG 1 tablet Orall y Once a day for 90 days Active Hydrocodone-Acetaminophen 5-325 MG TAKE 1 TABLET BY MOUTH THREE TIMES DAILY FOR CHRONIC PAIN Oral for 30 Days Active Finasteride 5 MG 1 tablet Orally Once a day for 30 day(s) Active Celecoxib 200 MG 1 capsule with food Orally Twice a day for 30 days Active Amlodipine Besylate 5 MG 1 tablet Orally Once a day for 90 days Active Social History Tobacco Status: Question Answer Notes Patient is a non tobacco user Problems Problem Type SNOMED Code ICD Code Onset Dates Problem Status W/U Status Risk Notes Problem [id number] Right hand pain (M79.641) Active confirmed Problem 93381591605991509 Right hand weakness (R29.898) Active confirmed Problem 295366066051608 Left hand pain (M79.642) Active confirmed Problem [id number] Left hand weakness (R29.898) Active confirmed Problem 330908123 History of bilateral carpal tunnel release (Z98.890) Active confirmed Problem 055501542 S/P cubital tunnel release (Z98.890) Active confirmed Problem 716134120 Dietary counseling and surveillance (Z71.3) Active confirmed Problem 5126440 Former smoker (Z87.891) Active confirmed Problem 286121449699048 Primary osteoarthritis, right hand (M19.041) Active confirmed Problem 144394495826351 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 (M25.70) Active confirmed Problem 752686807 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) Active confirmed Vital Signs Height 5'10 in 08/06/2024 Weight 192.5 lbs 08/06/2024 BMI 27.62 kg/m2 08/06/2024 Blood pressure systolic 144 mm Hg 08/06/19 25 Blood pressure diastolic 76 mm Hg 025 Temperature 98.5 degrees Fahrenheit 08/06/19 25 Heart Rate 57 /min 08/06/2024 Procedures Procedure Date Ordered Date Performed Result Body Sit e INJ TENDON SHEATH/LIGAMENT () 08/06/2024 08/06/2024 N /A Encounters Encounter Location Date Provider Diagnosis [id number] [facility] SPECS [facility] [place] [address] 08/06/2024 ARTHUR MOYER Trigger middle finge r of right hand M65.331 ; Trigger ring finger of right hand M65.341 ; Trigger index finger of right hand M65.321 ; Right hand pain M79.641 ; Primary osteoarthritis, right hand M19.041 ; Right hand weakness R29.898 ; Dietary counseling and surveillance Z71.3 ; Body mass index [BMI] 27.0-27.9, adult Z68.27 ; S/P cubital tunnel release Z98.890 ; Heberden's nodes M15.1 ; 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 M25.70 ; Overweight E66.3 ; Former smoker Z87.891 ; History of bilateral carpal tunnel release Z98.890 ; Left hand weakness R29.898 and Left hand pain M79.642 Assessments Encounter Date Diagnosis (ICD Code) Assessment Notes Treatment Notes Treatment Clinical Notes Section Notes 08/06/2024 Trigger middle finger of right hand (ICD-10 - M65.331) 08/06/2024 Trigger ring finger of right hand (ICD-10 - M65.341) 08/06/2024 Trigger index finger of right hand (ICD-10 - M65.321) 08/06/2024 Right hand pain (ICD-10 - M79.641) Hand Pain: Care Instructions material was published 08/06/2024 Primary osteoarthritis, right hand (ICD-10 - M19.041) 08/06/2024 Right hand weakness (ICD-10 - R29.898) 08/06/2024 Dietary counseling and surveillance (ICD-10 - Z71.3) 08/06/2024 Body mass index [BMI] 27.0-27.9, adult (ICD-10 - Z68.27) 08/06/2024 S/P cubital tunnel release (ICD-10 - Z98.890) 08/06/2024 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) 08/06/2024 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 (ICD-10 - M25.70) 08/06/2024 Overweight (ICD-10 - E66.3) 08/06/2024 Former smoker (ICD-10 - Z87.891) 08/06/2024 History of bilateral carpal tunnel release (ICD-10 - Z98.890) 08/06/2024 Left hand weakness (ICD-10 - R29.898) 08/06/2024 Left hand pain (ICD-10 - M79.642) 08/06/2024 Other Patient is a 78-year-old male who is overweight by BMI who presents to the orthopedic office today for bilateral hand pain and problems with his fingers triggering. Patient elected to receive a steroid injection. Patient was given Depo-Medrol injections in the palm at the base of his right index finger, right middle finger, and right ring fingers today with no complications. Patient will follow up with our office in 2 weeks so we can see if he needs injections in the other hand. Plan Of Treatment Treatment Notes Assessment Notes Right hand pain Hand Pain: Care Inst ructions material was published Other Patient is a 78-year -old male who is overweight by BMI who presents to the orthopedic office today for bilateral hand pain and problems with his fingers triggering. Patient elected to receive a steroid injection. Patient was given Depo-Medrol injections in the palm at the base of his right index finger, right middle finger, and right ring fingers today with no complications. Patient will follow up with our office in 2 weeks so we can see if he needs injections in the other hand. Next Appt Details Follow Up: 2 Weeks, Reason: R hand inj check, Wants L hand inj Medications Administered Medication Instructions Date of Administration Dosage Notes MethylPREDNISolone Acetate 08/06/2024 20 mg Lidocaine HCl 08/06/2024 1 mL MethylPREDNISolone Acetate 08/06/2024 20 mg Lidocaine HCl 08/06/2024 1 mL MethylPREDNISolone Acetate 08/06/2024 20 mg Lidocaine HCl 08/06/2024 1 mL Progress Notes * Alonzo MORENO WDOB: [birth year] (78 yo M)Acc No.[id number]:08/06/2024 PROGRESS NOTE Patient: Alonzo BETANCOURT Provider: Mickie MOYER MD :1945 A ge:78 Y S ex:Male Date:08/06/2024 C #:[id number] Address:[address] [place] [address] [address] Eli[id number] Pcp:RAGHU CRUZ Subjective: * Chief Complaints: * B /L Hand Pain and weakness, No Injury, Xrays at [facility] 08/05/24, Sx 12/2023 [place] 02/2024 Right Carpal [place] Cubital Release in [place] * HPI: P atient History: Patient is a 78-year-old male who presents to the orthopedic office for the 1st time today, August 06, 2024, for bilateral hand pain and weakness. Patient had x-rays at [facility] yesterday. Patient has a history of bilateral carpal and bilateral cubital tunnel release surgeries in the summer in [place]. Patient states his pain began in February of 2024, around the time of his right carpal tunnel release surgery. Patient states he felt like his fingers were beginning to trigger, and when he brought up to the physician assistant family teacher at his follow-up appointment, she said that that is pretty common in there is not much they can do about it. Patient states his right hand is worse than his left hand. Patient states it is his right index, middle, and ring fingers that are affected. Patient's left hand is not as bad and it is only his middle finger that is affected. Patient denies any injuries to his hands. Nothing improves the pain, though the patient has tried Voltaren gel, Biofreeze, and him cream. Nothing makes the pain worse. Quality of the pain is tenderness. Pain does not radiate. Severity of the pain is 3 to 4/10 in the right hand and 2 to 3/10 in the left hand. Time of day does not affect the pain. Patient denies any numbness and tingling, as he states that those things went away after his surgeries. Patient has noticed that he is unable to lay his hand flat. Patient has a history of bilateral total knee replacements and a left total hip replacement. He is right-handed, he is not diabetic, and he quit smoking in 1994. D epression Screening: PHQ-2 (2015 Edition) L ittle interest or pleasure in doing things? N ot at all, F eeling down, depressed, or hopeless? N ot at all, T otal Score 0 . F irst Point of Contact Screening: Do any of the following apply to you? N ew rash or open sores N o, F ever and/or chills in the past 7 days N o, C ough N o, M uscle or body aches (other than from an injury) N o, S ore throat N o, I n the past 3 weeks, have you or a close contact traveled outside the [place] and you are now ill? N o, O FFICE USE (If universal masking is not in place, provide patients age 2 years and older with a facemask to wear over their mouth and nose while in the practice.): P atient answered no to all questions OR only answered yes to question 1, N o further action needed 0 08/06/2024. * ROS: O RTHO: Constitutional: N egative for: fever. S kin/Breast:?Negative for: rash. E yes: N egative for: irritation. E ars/Nose/Throat: E ar:Negative for: pain,Nose:Negative for: nose/sinus problems. C ardiovascular: N egative for: chest pain with exertion. R espiratory: N egative for: cough, wheezing. G astrointestinal: N egative for: abdominal pain. G enitourinary: N egative for: incontinence. M usculoskeletal: P ositive for: muscle pain, weakness, joint pain, back pain. swelling in the extremities . N eurologic:?Negative for:dizziness. P sychiatric: N egative for: sleep disturbance. E ndocrine: N egative for: fatigue. L ymphatics: N egative for: easy bruising. A llergic/Immunologic: N egative for: sinus pressure. * Medical History: * Surgical History: b ack fusion 2015back fusiion 2016hip left knee B/L TOTAL KNEE ARTHROPLASTY RIGHT TOTAL HIP ARTHROPLASTY Pain Stimulator Implant * Hospitalization/Major Diagno stic Procedure: N o Hospitalization History. * Family History: M other: , diagnosed with Colon CA, Heart Attack. F ather: , alcoholism.? * Social History: A lcohol Use P atient d oes not use alcohol. T obacco Status P atient is a non tobacco user. M arital Status: . Living Environment R eported as: H ouse/Condo/Apartment. P ersonal Information: Right hand dominant. * Medications: T akingAmlodipine Besylate 5 MG Tablet 1 tablet Orally Once a day Celecoxib 200 MG Capsule 1 capsule with food Orally Twice a day Finasteride 5 MG Tablet 1 tablet Orally Once a day Hydrocodone-Acetaminophen 5-325 MG Tablet TAKE 1 TABLET BY MOUTH THREE TIMES DAILY FOR CHRONIC PAIN Oral Rosuvastatin Calcium 5 MG Tablet 1 tablet Orally Once a day Taking Amlodipine Besylate 5 MG Tablet 1 tablet Orally Once a day Taking Celecoxib 200 MG Capsule 1 capsule with food Orally Twice a day Taking Finasteride 5 MG Tablet 1 tablet Orally Once a day Taking Hydrocodone- Acetaminophen 5-325 MG Tablet TAKE 1 TABLET BY MOUTH THREE TIMES DAILY FOR CHRONIC PAIN Oral Taking Rosuvastatin Calcium 5 MG Tablet 1 tablet Orally Once a day DiscontinuedDaypro 600 MG Tablet 1 tablet Orally BID Methocarbamol 750 MG Tablet 1 tablet Orally TID Olmesartan Medoxomil-HCTZ 40-12.5 MG Tablet 1 tablet Orally Once a day Skelaxin 800 MG Tablet 1 tablet Orally Three times a day Tylenol Ex St Arthritis Pain Vitamin D 12.5 MCG/0.25ML Liquid 0.25 ml Orally Once a day Voltaren 1 % Gel as directed Externally Medication List reviewed and reconciled with the patientDiscontinued Daypro 600 MG Tablet 1 tablet Orally BID Discontinued Methocarbamol 750 MG Tablet 1 tablet Orally TID Discontinued Olmesartan Medoxomil-HCTZ 40-12.5 MG Tablet 1 tablet Orally Once a day Discontinued Skelaxin 800 MG Tablet 1 tablet Orally Three times a day Discontinued Tylenol Ex St Arthritis Pain Discontinued Vitamin D 12.5 MCG/0.25ML Liquid 0.25 ml Orally Once a day Discontinued Voltaren 1 % Gel as directed Externally Medication List reviewed and reconciled with the patient * Allergies: I shameka DecongestantACE Inhibitorsyan[Allergies Verified] Objective: * Vitals: H t: 5'10, Ht-cm: 177.8 cm, Wt: 192.5 lbs, Wt-k.32 kg, BMI:27.62, Weight Change: 12.7 lbs, Body Surface Area: 2.07, BP:144/76, Temp:98.5F, HR:57, Pain scale: 4. * Examination: G eneral Examination: Keon kamara is a 78-year-old male who is 5 ft 10 in tall, weighing 192.5 lb, with BMI of 27.62 kilograms/meter squared. His blood pressure is 144/76 mmHg, with a temperature 98.5 degree(s) F, heart rate of 57 beats per minute. Patient rates his pain currently as a 4/10. Patient ambulates well without the use of a cane or a walker. He is awake, alert, and oriented. His head is normocephalic and atraumatic. Upon inspection and examination, his eyes, ears, nose, and neck are without abnormality. He does not complain to me of any chest pain or shortness of breath. His abdomen is nondistended. His skin is warm and dry with no cyanosis or erythema. Patient has good range of motion of his hips, knees, and ankles with no pain. Patient has good range of motion of his elbows and wrists with no pain. Patient does have pain in both of his shoulders with range of motion movements. Patient is tender to palpation in both palms. Patient reports that he cannot flatten his hand onto a table. Patient has Heberden's nodes of both hands. Visual images independently reviewed, three views right hand taken [facility]. There is a ring on the patient's 4th finger that he is unable to remove. There are severe degenerative changes as evidenced by decrease of the joint space and osteophyte formation. There is no acute fracture or dislocation. Visual images independently reviewed, three views left hand taken at [facility]. There is a ring on the patient's 4th finger that he is unable to remove. There are degenerative changes as evidenced by decrease of the joint space and osteophyte formation. There is no acute fracture or dislocation. Assessment: * Assessment: 1. T heavy lift rigger ring finger of right hand - M65.341 (Primary) 2 . T heavy lift rigger middle finger of right hand - M65.331 3 . T heavy lift rigger index finger of right hand - M65.321 4 . R ight hand pain - M79.641 5 . P rimary osteoarthritis, right hand - M19.041 6 . R ight hand weakness - R29.898 7 .?Dietary counseling and surveillance - Z71.3 8 . B virgen mass index [BMI] 27.0-27.9, adult - Z68.27 9 . S /P cubital tunnel release - Z98.890 1 0. H eberden's nodes - M15.1 1 1. O steophyte determined by x-ray - M25.70? 12. O verweight - E66.3 1 3. F ormer smoker - Z87.891 1 4. H istory of bilateral carpal tunnel release - Z98.890 1 5. L eft hand weakness - R29.898 1 6. L eft hand pain - M79.642 Plan: * Treatment: Notes: Hand Pain: Care Instructions material was published??2.?Others? Notes: Patient is a 78-year-old male who is overweight by BMI who presents to the orthopedic officetoday for bilateral hand pain and problems with his fingers triggering. Patient elected to receive a steroid injection. Patient was given Depo-Medrol injections in the palm at the base of his right index finger, right middle finger, and right ring fingers today with no complications. Patient will follow up with our office in 2 weeks so we can see if he needs injections in the other hand.? * Procedures: PROCEDURE: This patient who suffered from a trigger fingers of his 2nd 3rd and 4th fingers the with the locking into the palm patient opted to go ahead with injections of Depo-Medrol. Patient gave informed consent and we proceeded with giving him an injection of Depo-Medrol 20 mg of Depo-Medrol with 1 cc of 1% lidocaine for each side. Next para starting with the 2nd finger after the A1 colette was palpated skin overlying this area was thoroughly cleaned with Betadine followed by alcohol ethyl chloride was used to numb the area using 25 gauge needle needle was proceeded through the skin into the tendon sheath area patient was asked to move the finger when no movement of the needle was notice injection was given into the tendon sheath area into the A1 colette area in a similar fashion the 3rd finger was also injected with the 20 mg of Depo-Medrol with 1 cc of 1% lidocaine was injected after skin was thoroughly cleaned with Betadine followed by alcohol ethyl chloride was used an injection was given and 25 gauge needle. Procedure going on with the next the 4th finger was injected in the similar fashion after skin overlying the A1 colette was thoroughly cleaned with Betadine followed by alcohol ethyl chloride was used to numb the area using 25 gauge needle 20 mg of Depo-Medrol with 1 cc of 1% lidocaine was injected patient tolerated the procedure well after injection patient was given post-injection instructions apply some vitamin E to make the the area more softer and supple but due tendon gliding exercises stretching exercises. * Therapeutic Injections: Lidocaine for injection (Non-IV) : 1 mL (Dose No:1) (Route: Other/Miscellaneous) given by ARTHUR MOYER MD on Right Hand Second Finger Lidocaine for injection (Non-IV) : 1 mL (Dose No:1) (Route: Other/Miscellaneous) given by ARTHUR MOYER MD on Right Hand Third Finger Lidocaine for injection (Non-IV) : 1 mL (Dose No:1) (Route: Other/Miscellaneous) given by ARTHUR MOYER MD on Right Hand Fourth Finger Methylprednisolone Acetate (Depo Medrol) : 20 mg (Dose No:1) (Route: Other/Miscellaneous) given by ARTHUR MOYER MD on Right Hand Second Finger Methylprednisolone Acetate (Depo Medrol) : 20 mg (Dose No:1) (Route: Other/Miscellaneous) given by ARTHUR MOYER MD on Right Hand Third Finger Methylprednisolone Acetate (Depo Medrol) : 20 mg (Dose No:1) (Route: Other/Miscellaneous) given by ARTHUR MOYER MD on Right Hand Fourth Finger * Procedure Codes: 1 159F MED LIST DOCD IN [id number] FXNL STATUS [id number] RVW MEDS BY RX/DR IN [id number] ELIG CLIN DOC M UPDTD REC PT [id number] AMNT PAIN NOTED PAIN [id number] INJ METHYLPRED ACETATE 1 MG, Units: 60.00 , Modifiers: [id number], Units: 3.00 , Modifiers: RT * Preventive Medicine: [place] PAF (Patient Assessment Form): F all Risk Assessment D ate Screening Completed: 0 08/06/2024, I ncreased Fall Risk factors: N o fall risk factors, H istory Falls in Past Year: N o falls in the past year. F unctional Status B asic ADLs: N o difficulties with bathing, grooming, dressing, eating, toileting and transferring, I nstrumental ADLs: M eal preparation difficulties, Shopping difficulties, Housework and laundry difficulties, R ecommendations: O ther (Specify) See note, S ensory Impairment: H earing Aid,?[place] of Care providers updated: Y es. A mbulatory Status P atient: i s independent. C olorectal Cancer Screening (45-75 y/o) C olonoscopy Date (Every 10 years): 0 12/05/2022. Quality Measures: H igh Blood Pressure screening and follow up: I ntervention Order Y es, L ifestyle Recommendation L ifestyle education regarding hypertension (procedure) . W eight Assessment A lucina Normal BMI Follow-Up L ifestyle education regarding diet. E xceptions and Exclusions I nfluenza Immunization (CQW) P atient Reason, Type of Patient Reason D rug declined by patient. * Follow Up: 2 Weeks (Reason: R hand inj check, Wants L hand inj) * * Sign off status: Completed true * Provider: Mickie MOYER MD Date: 0 08/06/2024 Generated for Rey smith/Kathy/Jesus Manuelitting on: 0 02/28/2025 02:12 PM EDT History and Physical Notes * HPI (History of Present Illness) Category Sub-Category Detail Notes Category Not es Depression Screening PHQ-2 (2015 Edition) Little interest or pleasure in doing things?: Not at all Feeling down, depressed, or hopeless?: N ot at all Total Score: 0 First Point of Contact Screening Do any of the following apply to you? New rash or open sores: No Fever and/or chills in the past 7 days: No Cough: No Muscle or body aches (other than from an injury): No Sore throat: No In the past 3 weeks, have yo u or a close contact traveled outside the [place] and you are now ill? : No OFFICE USE (If Tre[place] is not in place, provide patients age 2 years and older with a facemask to wear over their mouth and nose while in the practice.):: Patient answered no to all questions OR only answered yes to question 1 No further action needed : 08/06/2024 Examination Category Sub-Category Detail Notes Category Not es General Examination Patient is a 78-year-old male who is 5 ft 10 in tall, weighing 192.5 lb, with BMI of 27.62 kilograms/meter squared. His blood pressure is 144/76 mmHg, with a temperature 98.5 degree(s) F, heart rate of 57 beats per minute. Patient rates his pain currently as a 4/10. Patient ambulates well without the use of a cane or a walker. He is awake, alert, and oriented. His head is normocephalic and atraumatic. Upon inspection and examination, his eyes, ears, nose, and neck are without abnormality. He does not complain to me of any chest pain or shortness of breath. His abdomen is nondistended. His skin is warm and dry with no cyanosis or erythema. Patient has good range of motion of his hips, knees, and ankles with no pain. Patient has good range of motion of his elbows and wrists with no pain. Patient does have pain in both of his shoulders with range of motion movements. Patient is tender to palpation in both palms. Patient reports that he cannot flatten his hand onto a table. Patient has Heberden's nodes of both hands. Visual images independently reviewed, three views right hand taken [facility]. There is a ring on the patient's 4th finger that he is unable to remove. There are severe degenerative changes as evidenced by decrease of the joint space and osteophyte formation. There is no acute fracture or dislocation. Visual images independently reviewed, three views left hand taken at [facility]. There is a ring on the patient's 4th finger that he is unable to remove. There are degenerative changes as evidenced by decrease of the joint space and osteophyte formation. There is no acute fracture or dislocation.
--- OUTSIDE RECORDS SUMMARY | 2024-08-24 04:15 | XMS_ITS ---
Author Organization [facility] Physician Luis es Billing Info Address [address] [place] [address] Carlita davidson [place] [id number] Care Team Providers Care Outside Deliverer Name Role Phone RAGHU CRUZ Primary Care Provider KATTY Michael Unavailable ARTHUR MOYER Unavailable [phone] Allergies Allergen (clinical drug ingredient) Drug/Non Drug Allergy documented on EMR Reaction Allergy Type Onset Date Status Inhaler Decongestant Unknown Drug Allergy Active angiotensin-converting enzyme inhibitor (FN) ALLISON Inhibitors Unknown Drug Allergy Acti ve REASON FOR VISIT 2wk F/U B/L Hand Pain and weakness Medications Medication SIG (Take, Route, Frequency, Duration) Notes Start Date End Date Status Finasteride 5 MG 1 tablet Orally Once a day for 30 day(s) Active Celecoxib 200 MG 1 capsule with food Orally Twice a day for 30 days Active Amlodipine Besylate 5 MG 1 tablet Orally Once a day for 90 days Active Rosuvastatin Calcium 5 MG 1 tablet Orall y Once a day for 90 days Active Hydrocodone-Acetaminophen 5-325 MG TAKE 1 TABLET BY MOUTH THREE TIMES DAILY FOR CHRONIC PAIN Oral for 30 Days Active Social History Tobacco Status: Question Answer Notes Patient is a non tobacco user Vital Signs Height 5'10 in 08/24/2024 Weight 191 lbs 08/24/2024 BMI 27.4 kg/m2 08/24/2024 Blood pressure systolic 156 mm Hg 08/24/19 25 Blood pressure diastolic 74 mm Hg 025 Temperature 97.8 degrees Fahrenheit 02/18/20 25 Heart Rate 87 /min 08/24/2024 Encounters Encounter Location Date Provider Diagnosis [id number] [address] [facility] [address] [place] [address] 08/24/2024 ARTHUR MOYER Trigger middle finge r of [...] Treatment Notes Treatment Clinical Notes Section Notes 08/24/2024 Trigger middle finger of right hand (ICD-10 - M65.331) 08/24/2024 Trigger ring finger of right hand (ICD-10 - M65.341) 08/24/2024 Trigger index finger of right hand (ICD-10 - M65.321) 08/24/2024 Right hand pain (ICD-10 - M79.641) Hand Pain: Care Instructions material was published 08/24/2024 Primary osteoarthritis, right hand (ICD-10 - M19.041) 08/24/2024 Right hand weakness (ICD-10 - R29.898) 08/24/2024 Dietary counseling and surveillance (ICD-10 - Z71.3) 08/24/2024 Body mass index [BMI] 27.0-27.9, adult (ICD-10 - Z68.27) 08/24/2024 S/P cubital tunnel release (ICD-10 - Z98.890) 08/24/2024 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) 08/24/2024 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 (ICD-10 - M25.70) 08/24/2024 Overweight (ICD-10 - E66.3) 08/24/2024 Former smoker (ICD-10 - Z87.891) 08/24/2024 History of bilateral carpal tunnel release (ICD-10 - Z98.890) 08/24/2024 Left hand weakness (ICD-10 - R29.898) 08/24/2024 Left hand pain (ICD-10 - M79.642) 08/24/2024 Other Patient seems t o have responded well to the injection he received for his right hand the left hand has responded well without injection patient at this stage does not want to proceed with any kind of injection for the left hand patient is told that she should follow-up with his a hand surgeon in [place] when he returns in October for his carpal tunnel and cubital tunnel releases for the trigger finger he can come back and see us again as needed Plan Of Treatment Treatment Notes Assessment Notes Right hand pain Hand Pain: Care Inst ructions material was published Other Patient seems to hav e responded well to the injection he received for his right hand the left hand has responded well without injection patient at this stage does not want to proceed with any kind of injection for the left hand patient is told that she should follow-up with his a hand surgeon in [place] when he returns in October for his carpal tunnel and cubital tunnel releases for the trigger finger he can come back and see us again as needed Next Appt Details Follow Up: prn, Reason: Progress Notes * Alonzo MORENO WDOB: [birth year] (78 yo M)Acc No.[id number]:08/24/2024 PROGRESS NOTE Patient: Alonzo BETANCOURT Provider: Mickie MOYER MD :1945 A ge:78 Y S ex:Male Date:08/24/2024 c #:[id number] Address:[address] [place] [address] [address] Elias, [facility], [id number] Pcp:RAGHU CRUZ Subjective: * Chief Complaints: * 2 wk F/U B/L Hand Pain and weakness * HPI: P atient History: Patient is a 78-year-old male who presents to the orthopedic office for the 1st time today, August 06, 2024, for bilateral hand pain and weakness. Patient had x-rays at [facility] yesterday. Patient has a history of bilateral carpal and bilateral cubital tunnel release surgeries in the summer in [place]. Patient states his pain began in February of 2024, around the time of his right carpal tunnel release surgery. Patient states he felt like his fingers were beginning to trigger, and when he brought up to the physician kennel assistant at his follow-up appointment, she said that [...] diabetic, and he quit smoking in 1994. 08/24/2024: Patient is a 78-year-old male who presents for follow-up for bilateral hand pain and weakness. Patient had injections of Depo-Medrol given in his right hand on August 06, 2024. Patient is here today to see if he would like to receive Depo-Medrol injections in his left hand. D epression Screening: PHQ-2 (2015 Edition) L [...] 1, N o further action needed 0 08/24/2024. * ROS: O RTHO: Constitutional: N egative [...] non tobacco user. M arital Status: . Lives with: spouse. Living Environment R eported as: H ouse/Condo/Apartment. O ccupation/Work: retired. Personal Information: Right hand dominant. * Medications: T [...] Tablet 1 tablet Orally Once a day Medication List reviewed and reconciled with the patientTaking Amlodipine Besylate 5 MG Tablet 1 tablet Orally Once a day Taking Celecoxib 200 MG Capsule 1 capsule with food Orally Twice a day Taking Finasteride 5 MG Tablet 1 tablet Orally Once a day Taking Hydrocodone-Acetaminophen 5-325 MG Tablet TAKE 1 TABLET BY MOUTH THREE TIMES DAILY FOR CHRONIC PAIN Oral Taking Rosuvastatin Calcium 5 MG Tablet 1 tablet Orally Once a day Medication List reviewed and reconciled with the patient * Allergies: I shameka DecongestantACE Tom[Allergies Verified] Objective: * Vitals: H t:5'10, Ht-cm: 177.8 cm, Wt:191lbs, Wt-k.64 kg, BMI:27.4, Weight Change: - 1.5 lbs, Body Surface Area: 2.07, BP:156/74, Temp:97.8F, HR:87, Pain scale: 0. * Examination: G ENERAL EXAMINATION: this patient is a 5 ft 10 in tall 78-year-old male who weighs 191 lb with BMI of 27.4 blood pressure is 156/74 temperature 97.8 degrees heart rate 87 pain scale 0/10. 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 Patient range of motion have been restored to near normal patient had carpal tunnel and cubital tunnel releases done in [facility] in February of last year. Patient is neurologically intact. Assessment: * Assessment: 1. T batter out ring finger of right hand - M65.341 (Primary) 2 . T batter out middle finger of right hand - M65.331 3 . T batter out index finger of right hand - M65.321 [...] hand pain - M79.642 Plan: * Treatment: 2. O thers Notes: Patient seems to have responded well to the injection he received for his right hand the left hand has responded well without injection patient at this stage does not want to proceed with any kind of injection for the left hand patient is told that she should follow-up with his a hand surgeon in [place] when he returns in October for his carpal tunnel and cubital tunnel releases for the trigger finger he can come back and see us again as needed * Immunizations: Immunization record has been reviewed and updated. * Procedure Codes: 1 159F MED LIST DOCD IN [id number] FXNL STATUS [id number] RVW MEDS BY RX/DR IN [id number] [facility] DOC M UPDTD REC PT [id number] AMNT PAIN NOTED NONE PRSNT * Preventive Medicine: [place] PAF (Patient Assessment Form): F all Risk Assessment D ate Screening Completed: 0 08/24/2024, I ncreased Fall Risk factors: N o [...] See note, S ensory Impairment: H earing Aid,?[place] of Care providers updated: Y es. A mbulatory Status P atient: i s independent. C olorectal Cancer Screening (45-75 y/o) C olonoscopy Date (Every 10 years): 0 12/05/2022. D epression Screening P HQ 2 Smart Form: N egative for Depression. Quality Measures: H igh Blood Pressure screening and follow up: I ntervention Order Y es, L ifestyle Recommendation L ifestyle education regarding hypertension (procedure) . W eight Assessment A lucina Normal BMI Follow-Up L ifestyle education regarding diet. E xceptions and Exclusions I nfluenza Immunization (CQW) P atient Reason, Type of Patient Reason D rug declined by patient. * Follow Up: p rn * Care Plan Details* * Sign off status: Completed true * Provider: Mickie MOYER MD Date: 0 08/24/2024 Generated for Rey smith/Kathy/Roselia on: 0 02/28/2025 02:12 PM EDT History [...] now ill? : No OFFICE USE (If [employer] is not in place, provide patients age 2 years and older with a facemask to wear over their mouth and nose while in the practice.):: Patient answered no to all questions OR only answered yes to question 1 No further action needed : 08/24/2024 Examination Category Sub-Category Detail Notes Category Not es GENERAL EXAMINATION this pat ient is a 5 ft 10 in tall 78-year-old male who weighs 191 lb with BMI of 27.4 blood pressure is 156/74 temperature 97.8 degrees heart rate 87 pain scale 0/10. 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 Patient range of motion have been restored to near normal patient had carpal tunnel and cubital tunnel releases done in [facility] in February of last year. Patient is neurologically intact.
[2025-02-28] VITALS (7 sets, daily range): BP systolic 135–168; BP diastolic 72–90; PULSE 56–76; RESP 16–19; TEMP 36.8–36.9; O2SAT 96–98
--- NOTE | ~2025-02-28 | CT_ITS ---
EXAMINATION: CT chest high resolution w con DATE: 02/28/2025 14:52 INDICATION: Pulmonary contusion TECHNIQUE: Computed tomography (CT) of the chest was performed with 100 cc Omnipaque 350 intravenous contrast. The dose-length product was 383.16 mGy-cm. COMPARISON: CT dated 10/19/2014 FINDINGS: There are multiple chronic right posterior rib fractures. There are acute left eighth, ninth and 10th rib fractures without displacement. There is focal consolidation in the left lower lobe. No endobronchial lesions. No pneumothorax. No suspicious pulmonary nodules or masses. IMPRESSION: 1. Acute left eighth, ninth and 10th rib fractures with underlying parenchymal consolidation. Differential diagnosis includes traumatic pulmonary contusion, atelectasis and hemorrhage. No pneumothorax. Reviewed, dictated and finalized at location O. IMPRESSION: 1. Acute left eighth, ninth and 10th rib fractures with underlying parenchymal consolidation. Differential diagnosis includes traumatic pulmonary contusion, a telectasis and hemorrhage. No pneumothorax.
--- NOTE | ~2025-02-28 | XR_ITS ---
EXAMINATION: XR ribs LT 2V w CXR 2V DATE: 02/28/2025 13:26 INDICATION: Fell last night on concrete stairs, left rib pain TECHNIQUE: Frontal and lateral images of the chest were obtained. 4 images of the left ribs were obtained. COMPARISON: Thoracic spine x-rays 04/22/2022 FINDINGS: Heart is mildly enlarged. Old right-sided rib fractures Spinal stimulator is noted. Small opacities in the mid and lower lungs which represents atelectasis/scarring or infiltrates. No pneumothorax identified. Mildly displaced left lateral seventh, eighth and ninth rib fractures. IMPRESSION: 1. Mildly displaced acute left lateral seventh, eighth and ninth rib fractures. 2. Small opacities in the mid and lower lungs which represents atelectasis/scarring or infiltrates. If symptoms persist or worsen, consider a short-term follow-up study or chest CT for further assessment. Reviewed, dictated and finalized at location Q. IMPRESSION: 1. Mildly displaced acute left lateral seventh, eighth and ninth rib fractures. 2. Small opacities in the mid and lower lungs which represents atelectasis/scar ring or infiltrates. If symptoms persist or worsen, consider a short-term follow-up study or chest C T for further assessment.
--- OUTSIDE RECORDS SUMMARY | 2025-02-28 13:11 | XMS_ITS | Continuity of Care Document ---
Author Name [facility] Organization [facility] Care Team Providers Care Digitizer Operator Name Role Phone [facility] Unavailable Unavailable Problems Combined list of problems from [facility] and [facility] facilities. It does not include entries that were removed or entered in error. Problem Status Onset Date Problem Type Date of Resolution Comments Source Sensorineural hearing loss, bilateral Active Condition [facility] Diagnosis: ICD-10-CM Z46.1 Encounter for fitting and adjustment of hearing aid Active Diagnosis [facility] Medications Combined list of outpatient medications from Department [facility] and [facility] facilities.Medications provided include 1) outpatient medications from the last 15 months, and 2) patient-reported medications. Medication Details Route Status Patient Instructions Prescription Expires Prescription Number Last Dispense Date Ordering Provider Order Date Order Qty Source finasteride 5 mg oral tablet TAKE ONE TABLET BY MOUTH DAILY, # 90 EA, 1 total refill(s ), Acute Complet ed 01/21/2023 2 2022 90.0 Ambulat ory Pharmac y HYDROCODONE -ACETAMINOP HEN (HYDROCODON E/ACETAMINO PHEN), 10MG-325MG, TABLET, ORAL, MALLINCKROD T PH, 500 ea. BOTTLE Active [id number] 4 2023 60 Pharmac y Data Transac tion Service Facilit y Immunizations Combined list of available immunizations from the Department of [facility] and [facility] facilities. Immunization Series Date Given Administered By Site Reaction Lot Number CVX Code Drug Gas Station Clerk Status Comments Source influenza, trivalent, adjuvanted 2018 ALUL, () Not Given influenza , trivalent , adjuvante d DoD Encounters Combined list of: 1) Encounters from [facility] facilities going backup to the last 18 months, not all [place] inpatient encounters are included; 2) Encounters from the Department of [facility] facilities going backup to 280 months. Location Location Details Encounter Type Encounter Number Reason For Visit Attending Provider ADM Date DC Date Status Disposition Source [facility] Outpatient Encounter [id number] 09/08 [facility] HEARING AID FITTING/CH ECKING [id number] Diagnos is: ICD-10- CM Z46.1 Encount er for fitting and adjustm ent of hearing aid PAT RAMIREZ D 06/21 [place] [facility] Outpatient Encounter [id number] 07/31 [facility] Outpatient Encounter [id number] ANTHONY MALLORY M 11/01 [facility] Procedures Combined list of: 1) Procedures from [facility] facilities going back up to thelast 18 months, not all [place] non-surgical procedures are included; 2) All procedures from the Department of [facility] facilities. Procedure Procedure Type Code Date Perfomer Comments Sourc e No data available for this section Ambulatory P harmacy Social History Combined list of available smoking, tobacco, and other social history from [facility] and [facility] facilities. Social History Type Response Date Comment Sourc e This section is an empty social history section. DoD Assessment and Plan Combined list of future care activities from [facility] and [facility] facilities (e.g., assessment and plan notes, appointments, orders, and referrals). Additional future care activities may be listed in the Plan of Care section. Result Assessment and Plan Date Source Assessment and Plan No data available for this section 02/28/2025 Ambulatory Pharmacy Functional Status Combined list of recent functional and cognitive assessments recorded at [facility] ([place]VA Functional [place] Measurement (FIM) Scale: 1 = Total Assistance (Subject = 0% +), 2 = Maximal Assistance (Subject = 25% +), 3 = Moderate Assistance (Subject = 50% +), 4 = Minimal Assistance (Subject = 75% +), 5 = Supervision, 6 = Modified [place] (Device), 7 = Complete [place] (Timely, Safely). Assessment Date/Time Source Assessment Type Assessment Skill Assessment Score Assessment Details No data available for this section
--- OUTSIDE RECORDS SUMMARY | 2025-02-28 13:11 | XMS_ITS | Continuity of Care Document ---
Author Name [facility] Organization [facility] Care Team Providers Care Performance Makeup Artist Name Role Phone [facility] Unavailable Unavailable Problems Combined list of problems from [facility] and [facility] facilities. It does not include entries that were removed or entered in error. Problem Status Onset Date Problem Type Date of Resolution Comments Source Sensorineural hearing loss, bilateral Active Condition [facility] Diagnosis: ICD-10-CM Z46.1 Encounter for fitting and adjustment of hearing aid Active Diagnosis [facility] Medications Combined list of outpatient medications from Department [facility] and [facility] facilities.Medications provided include 1) outpatient medications from [...] MALLINCKROD T PH, 500 ea. BOTTLE Active [id number] 4 2023 60 Pharmac y Data Transac tion Service Facilit y Immunizations Combined list of available immunizations from the Department of [facility] and [facility] facilities. Immunization Series Date Given Administered By Site Reaction Lot Number CVX Code Drug Gas Fitter Status Comments Source influenza, trivalent, adjuvanted 2018 ALUL, () Not Given influenza , trivalent , adjuvante d DoD Encounters Combined list of: 1) Encounters from [facility] facilities going backup to the last 18 months, not all [place] inpatient encounters are included; 2) Encounters from the Department of [facility] facilities going backup to 280 months. Location Location Details Encounter Type Encounter Number Reason For Visit Attending Provider ADM Date DC Date Status Disposition Source [facility] Outpatient Encounter [id number] 09/08 [facility] HEAR[facility]ID FITTING/CH ECKING [id number] Diagnos is: ICD-10- CM Z46.1 Encount er for fitting and adjustm ent of hearing aid PAT RAMIREZ D 06/21 [place] [facility] Outpatient Encounter [id number] 07/31 [facility] Outpatient Encounter [id number] ANTHONY MALLORY M 11/01 [facility] Procedures Combined list of: 1) Procedures from [facility] facilities going back up to thelast 18 months, not all [place] non-surgical procedures are included; 2) All procedures [...] at [facility] ([place] Functional [place] Measurement (FIM) Scale: 1 = Total Assistance (Subject = 0% +), 2 = Maximal Assistance (Subject = 25% +), 3 = Moderate Assistance (Subject = 50% +), 4 = Minimal Assistance (Subject = 75% +), 5 = Supervision, 6 = Modified [place] (Device), 7 = Complete [place] (Timely, Safely). Assessment Date/Time Source Assessment Type Assessment Skill Assessment Score Assessment Details No data available for this section
--- OUTSIDE RECORDS SUMMARY | 2025-02-28 13:13 | XMS_ITS | Clinical Summary ---
Author Organization [facility] Address [address] [place] [address] Care Team Providers Care Numerical Analysis Group Manager Name Role Phone Unavailable Primary Care Provider Unavailabl e Immunizations Immunization Administration Dates Next Due Covid-19 Vaccine, Vector-nr, Rs-ad26, Pf, 0.5 Ml ([email or web address]) 02/27/2021 Social History Tobacco Use Types Packs/Day Years Used Date Smoking Tobacco: Never Assessed Sex and Gender Information Value Date Recorded Sex Assigned at Not on file Legal Sex Male 7:20 PM CDT Gender Identity Not on file Sexual Orientation Not on file Plan of Treatment Health Maintenance Due Date Last Done Comments Hepatitis C Virus (HCV) Screening 1945 TdaP Immunization 1945 Pneumococcal Immunization (5 0+ years) (1 of 1 - PCV) 1996 Zoster Immunization (1 of 2) 1996 Respiratory Syncytial Virus (RSV) Immunization (Adult) (1 - 1-dose 75+ series) 2021 SARS-COV-2 Immunization (2 - season) 2024 02/27/2021 Influenza Immunization (#1) 03/07/202504/08, 06/07/2015 Hepatitis B Immunization Aged Out No longer eligible based on patient's age to complete this topic Human Papillomavirus (HPV) Immunization Aged Out No longer eligible b ased on patient's age to complete this topic Meningococcal Immunization (ACWY) Aged Out No longer eligible b ased on patient's age to complete this topic Rotavirus Immunization Aged Out No lo nger eligible based on patient's age to complete this topic
--- OUTSIDE RECORDS SUMMARY | 2025-02-28 13:13 | XMS_ITS | Clinical Summary ---
Author Organization [facility] Address [address] [place] [address] Care Team Providers Care Uniform Room Attendant Name Role Phone John Kumar MD Primary Care Provider Allergies Active Allergy Reactions Criticality Noted Date Comments Kenneth Inhibitors Cough Low 10/28/2016 Medications olmesartan-hydr ochlorothiazide (BENICAR HCT) 40-12.5 mg per tablet 02/09/2020 Active finasteride (PROSCAR) 5 mg tablet 01/22/2020 Active diclofenac sodium (VOLTAREN) 1 % gel 04/03/2020 Active celecoxib (CeleBREX) 200 mg capsule TAKE 1 CAPSULE TWICE A DAY 180 capsule 10/28/2020 Active Active Problems No known active problems Immunizations Immunization Administration Dates Next Due Influenza, Trivalent, Adjuvanted, Intramuscular 05/06/2019 Influenza, Trivalent, High D ose, Split, Preservative Free, Intramuscular 04/05/2020,06/07/2015 Medical History Medical History Date Comments Personal history of other di seases of the circulatory system History of hypertension - (A dded by Conv) Family History Medical History Relation Name Comments Alcohol abuse Father Family history of alcoholism - (Added by Conv) Kidney disease Father Family histor y of kidney disease - (Added by TW Conv) Blood Clot Mother Blood clot in v ein - (Added by Conv) Colon cancer Mother Colon cancer - (Added by TW Conv) Heart disease Mother Family history of cardiac disorder - (Added by TW Conv) Stroke Mother Family history of cerebrovascular accident (CVA) - (Added by TW Conv) Relation Name Status Comments Father Mother Social History Tobacco Use Types Packs/Day Years Used Date Smoking Tobacco: Former Sex and Gender Information Value Date Recorded Sex Assigned at Not on file Legal Sex Male 2:26 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 Gender Identity Not on file Sexual Orientation Not on file Obstetrics History Last Filed Vital Signs Vital Sign Reading Time Taken Comments Blood Pressure 128/70 05/17/2020 3:03 PM 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 Pulse 76 05/17/2020 3:03 PM 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 Temperature 36.8 C (98.2 F) 05/17/2020 3:03 PM 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 Respiratory Rate 16 05/17/2020 3:03 PM 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 Oxygen Saturation 97% 02/26/2017 3:40 AM CDT Inhaled Oxygen Concentration - - Weight 81.6 kg (180 lb) 05/17/2020 3:03 PM 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 Height 179.1 cm (5' 10.5) 05/17/2020 3:03 PM CS T Body Mass Index 25.46 05/17/2020 3:03 PM 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 Plan of Treatment Not on file Insurance MEDICARE [facility] Address[address] [address] [place] [address] [employer] [place] [place] [address] FOR LIFE Care Teams Uniform Room Attendant Relationship Specialty Start Date End Date John Kumar MD [address] [place] [address] PCP - General 11/27/16
--- OUTSIDE RECORDS SUMMARY | 2025-02-28 13:13 | XMS_ITS | Clinical Summary ---
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
--- OUTSIDE RECORDS SUMMARY | 2025-02-28 13:13 | XMS_ITS | Patient Health Record ---
Author Organization [facility] Billing Info Address [address] [place] [address] [place] [address] Care Team Providers Care Business Affairs Manager Name Role Phone RAGHU CRUZ Primary Care Provider AKTTY Michael Unavailable ARTHUR MOYER Unavailable [phone] Allergies Allergen (clinical drug ingredient) Drug/Non Drug Allergy documented on EMR Reaction Allergy Type Onset Date Status Inhaler Decongestant Unknown Drug Allergy Active angiotensin-converting enzyme inhibitor (FN) ALLISON Inhibitors Unknown Drug Allergy Acti ve Reason For Referral No Information Medications Medication SIG (Take, Route, Frequency, Duration) [...] Problem Status W/U Status Risk Notes Problem 622633380453166 Primary osteoarthritis, right hand (M19.041) Active confirmed Problem 602626180 Dietary counseling and surveillance (Z71.3) Active confirmed Problem Lumbar spondylosis (762164694) Lumbar spondylosis (M47.816) Active confirmed Problem 490712257491392 Right hand pain (M79.641) Active confirmed Problem 136511473593005 Left hand pain (M79.642) Active confirmed Problem 1979251 Former smoker (Z87.891) Active confirmed Problem 658260896 History of bilateral carpal tunnel release (Z98.890) Active confirmed Problem 790606686 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) Active confirmed Problem 15102897756381707 Right hand weakness (R29.898) Active confirmed Problem 51687096542917561 Left hand weakness (R29.898) Active confirmed Problem 692332669 S/P cubital tunnel release (Z98.890) Active confirmed Problem 838777240370410 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 (M25.70) Active confirmed Vital Signs Heart Rate 87 /min 08/24/2024 Temperature 97.8 degrees Fahrenheit 08/24/2024 Blood pressure diastolic 74 mm Hg 08/24/2024 Height 5'10 in 08/24/2024 Blood pressure systolic 156 mm Hg 08/24/2024 Weight 191 lbs 08/24/2024 BMI 27.4 kg/m2 08/24/2024 Procedures Procedure Date Ordered Date Performed Result Body Sit e INJ TENDON SHEATH/LIGAMENT () 08/06/2024 08/06/2024 N /A Encounters Encounter Location Date Provider Diagnosis [id number] [facility] [place] [address] 08/06/2024 ARTHUR MOYER Trigger middle finge r [...] weakness R29.898 and Left hand pain M79.[id number] [place] [address] [place] [address] 08/24/2024 ARTHUR AGUILARARJUN Trigger middle finge r of right hand [...] right hand (ICD-10 - M65.341) 08/24/2024 Trigger middle finger of right hand (ICD-10 - M65.331) 08/06/2024 Trigger index finger of right hand (ICD-10 - M65.321) 08/24/2024 Trigger ring finger of right hand (ICD-10 - M65.341) 08/24/2024 Trigger index finger of right hand (ICD-10 - M65.321) 08/06/2024 Right hand pain (ICD-10 - M79.641) Hand Pain: Care Instructions material was published 08/06/2024 Primary osteoarthritis, right hand (ICD-10 - M19.041) 08/24/2024 Right hand pain (ICD-10 - M79.641) Hand Pain: Care Instructions material was published 08/24/2024 Primary osteoarthritis, right hand (ICD-10 - M19.041) 08/06/2024 Right hand weakness (ICD-10 - R29.898) 08/06/2024 Dietary counseling and surveillance (ICD-10 - Z71.3) 08/24/2024 Right hand weakness (ICD-10 - R29.898) 08/24/2024 Dietary counseling and surveillance (ICD-10 - Z71.3) 08/06/2024 Body mass index [BMI] 27.0-27.9, adult (ICD-10 - Z68.27) 08/06/2024 S/P cubital tunnel release (ICD-10 - Z98.890) 08/24/2024 Body mass index [BMI] 27.0-27.9, adult (ICD-10 - Z68.27) 08/24/2024 S/P cubital tunnel release (ICD-10 - Z98.890) 08/06/2024 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) 08/06/2024 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 (ICD-10 - M25.70) 08/24/2024 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) 08/24/2024 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 (ICD-10 - M25.70) 08/06/2024 Overweight (ICD-10 - E66.3) 08/06/2024 Former smoker (ICD-10 - Z87.891) 08/24/2024 Overweight (ICD-10 - E66.3) 08/24/2024 Former smoker (ICD-10 - Z87.891) 08/06/2024 History of bilateral carpal tunnel release (ICD-10 - Z98.890) 08/06/2024 Left hand weakness (ICD-10 - R29.898) 08/24/2024 History of bilateral carpal tunnel release (ICD-10 - Z98.890) 08/24/2024 Left hand weakness (ICD-10 - R29.898) 08/06/2024 Left hand pain (ICD-10 - M79.642) 08/24/2024 Left hand pain (ICD-10 - M79.642) 08/06/2024 [...] he needs injections in the other hand. 08/24/2024 Other Patient seems t o have responded well to the injection he received for his right hand the left hand has responded well without injection patient at this stage does not want to proceed with any kind of injection for the left hand patient is told that she should follow-up with his a hand surgeon in [place] when he returns in October for his carpal tunnel and cubital tunnel releases for the trigger finger he can come back and see us again as needed Plan Of Treatment No Information Insurance Providers Payer Name Payer Address Payer Phone Subscriber Number Group Number Insured Name Patient Relationship to Insured Coverage Start Date Coverage End Date MEDICARE [place] PART B [address] [facility] CHANCE GARCIA [id number] Alonzo Moreno Self - patient is the insured FOR LIFE [facility] [address] [place], [place] [id number] [phone] Alonzo Moreno Self - patient is the insured Medications Administered Medication Instructions Date of Administration Dosage Notes Lidocaine HCl 08/06/2024 1 mL Lidocaine HCl 08/06/2024 1 mL Lidocaine HCl 08/06/2024 1 mL MethylPREDNISolone Acetate 08/06/2024 20 mg MethylPREDNISolone Acetate 08/06/2024 20 mg MethylPREDNISolone Acetate 08/06/2024 20 mg Medical (General) History Medical History History ICD Code hypertension back pain swollen prostate leg pain Surgical History Surgery Date(Month/Year) Pain Stimulator Implant RIGHT TOTAL HIP ARTHROPLASTY B/L TOTAL KNEE ARTHROPLASTY left knee hip back fusiion 2016 back fusion 2014
--- OUTSIDE RECORDS SUMMARY | 2025-02-28 13:13 | XMS_ITS | Clinical Summary ---
Author Organization [facility] Address [address] [place] [address] Care Team Providers Care Bridge Crane Operator Name Role Phone Unavailable Primary Care Provider Unavailabl e Social History Tobacco Use Types Packs/Day Years Used Date Smoking Tobacco: Never Assessed Sex and Gender Information Value Date Recorded Sex Assigned at Not on file Legal Sex Male 8:06 PM CDT Gender Identity Not on file Sexual Orientation Not on file Plan of Treatment Health Maintenance Due Date Last Done Comments Hepatitis C 1964 DTaP, Tdap and Td Vaccines ( 1 - Tdap) 1965 Pneumococcal Vaccine: 50+ Ye ars (1 of 1 - PCV) 1996 Zoster Vaccines (1 of 2) 1996 RSV Immunization or 60+ Years (1 - 1-dose 75+ series) 2021 COVID-19 Vaccine ( - 2023-2 5 season) 2024 Meningococcal B Vaccine Aged Out No l onger eligible based on patient's age to complete this topic Meningococcal Vaccine Aged Out No chago greta eligible based on patient's age to complete this topic RSV Immunizations Under 20 Months Aged Out No longer eligible based on patient's age to complete this topic
--- OUTSIDE RECORDS SUMMARY | 2025-02-28 13:41 | XMS_ITS | Clinical Summary ---
Author Organization [facility] Address [address] [address] Care Team Providers Care Concrete Block Maker Name Role Phone John Kumar MD Primary [...] on file Legal Sex Male 2:26 AM [employer] Gender Identity Not on file Sexual Orientation Not on file Obstetrics History Last Filed Vital Signs Vital Sign Reading Time Taken Comments Blood Pressure 128/70 05/17/2020 3:03 PM [employer] Pulse 76 05/17/2020 3:03 PM [employer] Temperature 36.8 C (98.2 F) 05/17/2020 3:03 PM [employer] Respiratory Rate 16 05/17/2020 3:03 PM [employer] Oxygen Saturation 97% 02/26/2017 3:40 AM CDT Inhaled Oxygen Concentration - - Weight 81.6 kg (180 lb) 05/17/2020 3:03 PM [employer] Height 179.1 cm (5' 10.5) 05/17/2020 3:03 PM CS T Body Mass Index 25.46 05/17/2020 3:03 PM [employer] Plan of Treatment Not on file Insurance MEDICARE [place] MEDICARE FOR LIFE Care Teams Concrete Block Maker Relationship Specialty Start Date End Date John Kumar MD [address] [place] [address] PCP - General 11/27/16
--- OUTSIDE RECORDS SUMMARY | 2025-02-28 13:41 | XMS_ITS | Clinical Summary ---
Author Organization [facility] Address [address] [place] [address] Phone Care Team Providers Care Custom Clothier Name Role Phone Unavailable Primary Care Provider Unavailabl e Social History Tobacco Use Types Packs/Day Years Used Date Smoking Tobacco: Never Assessed Sex and Gender Information Value Date Recorded Sex Assigned at Not on file Legal Sex Male 10:05 AM [employer] Gender Identity Not on file Sexual Orientation [...] 2025 Insurance MEDICARE PART A AND B [employer]
--- OUTSIDE RECORDS SUMMARY | 2025-02-28 13:41 | XMS_ITS | Clinical Summary ---
Author Organization [facility] Address [address] [place] [address] Care Team Providers Care Project Engineer Name Role Phone Unavailable Primary Care Provider [...]
--- OUTSIDE RECORDS SUMMARY | 2025-02-28 13:41 | XMS_ITS | Clinical Summary ---
Author Organization [facility] Address [address] [place] [address] Care Team Providers Care Diver Helper Name Role Phone Unavailable Primary Care Provider Unavailabl e Immunizations Immunization Administration Dates Next Due Covid-19 Vaccine, Vector-nr, Rs-ad26, Pf, 0.5 Ml ([employer]) 02/27/2021 Social History Tobacco Use Types Packs/Day [...]
[2025-02-28 13:52] LABS: Hematocrit 42.0 % (37.0-46.0); Hemoglobin 13.2 g/dL (12.4-15.3); Immature Granulocyte Percent A 0.7 % (0.0-0.0); Lymphocytes Absolute Auto 0.90 K/mm3 (1.10-4.50); Mean Corpuscular HGB Conc 31.4 g/dL (32-36); Mean Corpuscular Hemoglobin 28.2 pg (27.0-31.0); Mean Corpuscular Volume 89.7 fL (78.0-102.0); Nucleated Red Blood Cells Absolute Auto 0.00 K/mm3 (0.00-0.00); Nucleated Red Blood Cells Perc 0.0 % (0-0.0); Platelet Count Result 208 K/mm3 (150-420); Red Blood Count 4.68 M/mm3 (4.70-6.10); White Blood Count 9.0 K/mm3 (4.8-10.8)
[2025-02-28 14:05] LABS: Alanine Aminotransferase 17 U/L (6-50); Albumin Level 4.3 g/dL (3.5-5.1); Alkaline Phosphatase 59 U/L (38-126); Anion Gap 5 mmol/L (4-12); Aspartate Amino Transferase 21 U/L (17-59); Bilirubin,Total 0.6 mg/dL (0.2-1.3); Blood Urea Nitrogen 22 mg/dL (9-20); Calcium 9.1 mg/dL (8.4-10.2); Carbon Dioxide 30 mmol/L (22-30); Chloride 105 mmol/L (98-107); Estimated CRCL calculation 46 ml/min; Estimated Glomerular Filt Rate 57; Glucose 142 mg/dL (65-110); INR 0.9; Osmolality Calculated 295 mOsm/kg (285-295); Potassium 4.3 mmol/L (3.4-5.0); Prothrombin Time 9.9 Seconds (9.50-12.1); Sodium 140 mmol/L (137-145); Total Protein 7.0 g/dL (6.3-8.2)
--- NOTE | 2025-02-28 15:30 | ED.GENADULT ---
HPI - General Adult General Chief complaint: Back Pain/Injury Stated complaint: left rib pain Time Seen by Provider: 02/28/25 13:08 Source: patient Mode of arrival: ambulatory Limitations: no limitations History of Present Illness HPI narrative: 79-year-old with a history of of hypertension, CKD chronic back pain on hydrocodone here with a complains of left-sided rib pain since last night. Patient states that he was getting out of the bathtub slipped and fell . He denies any head and neck injuries. Denies any shortness of breath. Onset (ago): day(s) (1) Location: chest ( Left) Radiation: back Severity: moderate Quality: aching Pain Consistency: constant Relieving factors: none Exacerbating factors: movement Associated symptoms: denies other symptoms Treatments prior to arrival: other (hydrocodone) Related Data Home Medications ?Medication ?Instructions ?Recorded ?Confirmed ?Last Taken ?Type hydrocodone 5 mg-acetaminophen 325 1 tablet PO Q8H PRN Pain 11/18/22 01/11/25 01/21/24 History mg tablet diclofenac sodium 1 % topical gel 2 gm topical QID PRN Pain 02/26/24 01/11/25 Unknown History Allergies Allergy/AdvReac Type Severity Reaction Status Date / Time ALLISON Inhibitors AdvReac Mild Cough Verified 02/28/25 13:10 Review of Systems Review of Systems: All systems reviewed & are unremarkable except as noted in HPI and below Constitutional: Constitutional: Reports no additional constitutional complaints Eyes: Eyes: Reports no additional eye complaints ENT: Reports system reviewed and no additional complaints, except as documented Cardiovascular: Cardiovascular: Reports as per HPI Respiratory: Respiratory: Reports as per HPI Gastrointestinal: Gastrointestinal: Reports no additional gastrointestinal complaints Genitourinary: Genitourinary: Reports no additional male genitourinary complaints Musculoskeletal: Musculoskeletal: Reports no additional musculoskeletal complaints Neurologic: Reports system reviewed and no additional complaints, except as documented PMF Past Medical History Medical History CKD (chronic kidney disease), stage III Hy kid NOS w cr kid I-IV Arthritis HLD (hyperlipidemia) Essential (primary) hypertension Surgical History Surgical History History of knee replacement procedure of left knee Status post left hip replacement Status post lumbar spinal fusion History of cataract Social History Social History Smoking packs per day: 2 Smoking cigarettes per day: 40.0 Years smoked: 3 Smoking pack-years: 6.00 Smoking status: Former smoker Tobacco type: cigarettes Second hand tobacco smoke exposure: No Smoking end date: 01/05/1968 Additional smoking assessment comments: QUIT 1995 Alcohol intake: current Substance use: never Substance use type: does not use Living arrangements: with family Additional living arrangements comments: Occupation/Education: retired Gender identity (if verbalized by the patient): Male Spiritual care concerns: No Exam Narrative: GENERAL: Well-appearing, well-nourished, and in no acute distress. HEAD: Normocephalic, atraumatic. EYES: PERRLA and EOMI. ENT: Nares clear, no rhinorrhea or epistaxis. Mucous membranes moist. NECK: Supple. CHEST: Clear to auscultation. No respiratory distress. tender on the left , no abnormal chest wall movement. HEART: Regular rate and rhythm. No murmur heard. Normal peripheral pulses. ABDOMEN: Soft, nontender, nondistended, normal active bowel sounds. EXTREMITIES: Normal range of motion. No edema. minor abrasion on the left elbow. SKIN: Warm, dry, no rash. NEURO: No focal deficits. Alert and oriented x3. PSYCH: Normal mood and affect. Course Course Emergency Course: pt comfortably resting , informed him about the CT findings , prefers to be transferred to [facility] ,I discussed with will accept the pt in transfer Vital Signs Vital signs: Vital Signs Temperature 36.9 C 02/28/25 13:06 Pulse Rate 76 02/28/25 13:06 Respiratory Rate 16 02/28/25 13:06 Blood Pressure 168/90 H 02/28/25 13:06 Pulse Oximetry 97 02/28/25 13:06 Temperature 36.9 C 02/28/25 13:06 Pulse Rate 76 02/28/25 13:06 Respiratory Rate 16 02/28/25 13:06 Blood Pressure 168/90 H 02/28/25 13:06 Pulse Oximetry 97 02/28/25 13:06 Medical Decision Making MDM Narrative Medical decision making narrative: 79-year-old with the fall of having left-sided chest pain is of do left rib series if needed will do a CT scan to rule out pulmonary contusion control his pain with IV morphine. Differential Diagnosis Differential Diagnosis: Rib fracture rib contusion, pulmonary contusion pneumothorax Vital Signs Vital Signs: Vital Signs Temperature 36.9 C 02/28/25 13:06 Pulse Rate 76 02/28/25 13:06 Respiratory Rate 16 02/28/25 13:06 Blood Pressure 168/90 H 02/28/25 13:06 Pulse Oximetry 97 02/28/25 13:06 Temperature 36.9 C 02/28/25 13:06 Pulse Rate 76 02/28/25 13:06 Respiratory Rate 16 02/28/25 13:06 Blood Pressure 168/90 H 02/28/25 13:06 Pulse Oximetry 97 02/28/25 13:06 Lab Data Lab results reviewed: Yes I reviewed the patient's lab results. 02/28/25 13:49 02/28/25 13:49 Labs: Lab Results 02/28/25 Range/Units 13:49 WBC 9.0 (4.8-10.8) K/mm3 RBC 4.68 L (4.70-6.10) M/mm3 Hgb 13.2 (12.4-15.3) g/dL Hct 42.0 (37.0-46.0) % MCV 89.7 (78.0-102.0) fL MCH 28.2 (27.0-31.0) pg MCHC 31.4 L (32-36) g/dL RDW 14.3 (11.6-14.4) % Plt Count 208 (150-420) K/mm3 MPV 10.8 (8.7-11.0) fl Immature Gran % (Auto) 0.7 H (0.0-0.0) % Neut % (Auto) 78.4 H (50.0-70.0) % Lymph % (Auto) 10.0 L (18.0-42.0) % [place] % (Auto) 9.3 (2.0-11.0) % Eos % (Auto) 1.2 (1.0-6.0) % Baso % (Auto) 0.4 (0.0-1.0) % Lymph # (Auto) 0.90 L (1.10-4.50) K/mm3 [place] # (Auto) 0.84 (0.10-0.90) K/mm3 Eos # (Auto) 0.11 (0.02-0.50) K/mm3 Baso # (Auto) 0.04 (0.00-0.10) K/mm3 Abs Immat Gran (auto) 0.06 H (0.00-0.00) K/mm3 Absolute Neuts (auto) 7.08 (1.70-7.20) K/mm3 Absolute Nucleated RBC 0.00 (0.00-0.00) K/mm3 Nucleated RBC % 0.0 (0-0.0) % PT 9.9 (9.50-12.1) Seconds INR 0.9 Sodium 140 (137-145) mmol/L Potassium 4.3 (3.4-5.0) mmol/L Chloride 105 (98-107) mmol/L Carbon Dioxide 30 (22-30) mmol/L Anion Gap 5 (4-12) mmol/L BUN 22 H D (9-20) mg/dL Creatinine 1.23 (0.7-1.3) mg/dL Estim Creat Clear Calc 46 ml/min Estimated GFR 57 L (59 - ) Glucose 142 H (65-110) mg/dL Calculated Osmolality 295 (285-295) mOsm/kg Calcium 9.1 (8.4-10.2) mg/dL Total Bilirubin 0.6 (0.2-1.3) mg/dL AST 21 (17-59) U/L ALT 17 (6-50) U/L Alkaline Phosphatase 59 (38-126) U/L Total Protein 7.0 (6.3-8.2) g/dL Albumin 4.3 (3.5-5.1) g/dL Imaging Data Radiologist's impression: ITS Impressions Ribs w/Chest X-Ray 02/28/25 13:31 IMPRESSION: 1. Mildly displaced acute left lateral seventh, eighth and ninth rib fractures. 2. Small opacities in the mid and lower lungs which represents atelectasis/scarring or infiltrates. If symptoms persist or worsen, consider a short-term follow-up study or chest CT for further assessment. High Resolution CT 02/28/25 15:11 IMPRESSION: 1. Acute left eighth, ninth and 10th rib fractures with underlying parenchymal consolidation. Differential diagnosis includes traumatic pulmonary contusion, atelectasis and hemorrhage. No pneumothorax. ECG Data EKG #1: ECG completion date: 02/28/25 ECG completion time: 15:37 EKG Interpretation: normal rate (60), sinus rhythm, no ectopy, RBBB and NL axis Discharge Plan Discharge Clinical Impression: Multiple fractures of ribs Qualifiers: Encounter type: initial encounter Fracture type: closed Laterality: left Qualified Code(s): S22.42XA - Multiple fractures of ribs, left side, initial encounter for closed fracture Contusion of left lung Qualifiers: Encounter type: initial encounter Qualified Code(s): S27.321A - Contusion of lung, unilateral, initial encounter Patient Disposition: Acute Care Hospital Condition: Stable Patient Language: Azerbaijani Prescriptions: No Action hydrocodone-acetaminophen 5-325 mg tablet 1 tablet PO Q8H PRN (Reason: Pain) Gemtesa 75 mg tablet 75 mg PO DAILY Qty: 30 0RF diclofenac sodium 1 % gel 2 gm TOPICAL QID PRN (Reason: Pain) olmesartan-hydrochlorothiazide 40-12.5 mg tablet See Rx Instructions .ROUTE .COMPLEX Qty: 90 3RF Dose Instruction: TAKE 1 TABLET DAILY Patient Comments: QAM Rx Instructions: TAKE 1 TABLET DAILY finasteride 5 mg tablet 5 mg PO DAILY Qty: 90 3RF amlodipine 5 mg tablet 5 mg PO DAILY Qty: 90 2RF Patient Comments: qam celecoxib 200 mg capsule See Rx Instructions .ROUTE .COMPLEX Qty: 180 2RF Dose Instruction: TAKE 1 CAPSULE TWICE A DAY Rx Instructions: TAKE 1 CAPSULE TWICE A DAY rosuvastatin 5 mg tablet See Rx Instructions .ROUTE .COMPLEX Qty: 90 2RF Dose Instruction: TAKE 1 TABLET DAILY Rx Instructions: TAKE 1 TABLET DAILY Follow-up/Referrals: John Kumar MD [Primary Care Provider, [facility]] Time of Disposition: 15:43
--- NOTE | 2025-02-28 15:32 | ECG_ITS ---
Test Date: 2025-02-28 15:36:59 Measurements Intervals [place] Rate: 60 P: 26 SC: 174 QRS: -12 QRSD: 138 T: 3 QT: 417 QTc: 418 Interpretive Statements SINUS RHYTHM RIGHT BUNDLE BRANCH BLOCK BASELINE ARTIFACT- II, III, AVR, AVL, AVFF, V1-V6 ABNORMAL ECG No previous ECG available for comparison Electronically Signed On 02-28-2025 16:02:08 CDT by Salomón Buchanan D.O.
== END 2025-02-28 16:23 | disposition short-term general hospital (02) ==
PROVIDERS: Emergency Provider Family Medicine; PCP Family Medicine
DX: S22.42XA Multiple fractures of ribs, left side, initial encounter for closed fracture (principal); S27.321A Contusion of lung, unilateral, initial encounter; I12.9 Hypertensive chronic kidney disease with stage 1 through stage 4 chronic kidney disease, or unspecified chronic kidney disease; N18.30 Chronic kidney disease, stage 3 unspecified; E78.5 Hyperlipidemia, unspecified; Z87.891 Personal history of nicotine dependence; Z79.891 Long term (current) use of opiate analgesic; W18.2XXA Fall in (into) shower or empty bathtub, initial encounter
CPT/HCPCS: 36415; 71046; 71100; 71260; 80053; 85025; 85610; 93005; 99285; Q9967